=== PATIENT | male | born 1940 | race Caucasian/White ===

== ENCOUNTER 2019-02-11 17:56 | Inpatient (IN) | payer MEDICARE, OTHER, SELFPAY ==
[2019-02-11 17:55] VITALS: BMI 28.0
--- NOTE | 2019-02-11 18:02 | PCM.HP.STD ---
History of Present Illness The patient is a 78 year old M [] Past Medical History Allergies No Known Allergies Allergy (Verified 02/11/19 17:59) Home Medications: Ambulatory Orders Medication Instructions Recorded Levothyroxine Sodium [Synthroid] 75 mcg PO 02/11/19 Losartan/Hydrochlorothiazide 1 each PO 02/11/19 [Losartan-Hctz 50-12.5 mg Tab] Smoking Status: Former smoker - Physical Exam Weight: 91.1 kg Body Mass Index (BMI) 28.0
[2019-02-11 18:12] VITALS: BMI 28.0
--- NOTE | 2019-02-11 18:19 | PCM.HP.STD ---
<Mavis Rosas - Last Filed: 02/11/19 18:43> Problem List (1) Pancreatitis Status: Acute (2) HTN (hypertension) Status: Chronic (3) Hypothyroidism Status: Chronic History of Present Illness Date of Admission: 02/11/19 Chief Complaint: Abdominal pain. The patient is a 78 year old M who presents as direct admit from [facility] due to abdominal pain. He reports that 9 AM he developed sudden onset of severe abdominal pain with associated nausea, no emesis. No recent illness. Reports he has never had pain like this in his life. Pain is mid upper abdomen, no radiation. Denies other associated complaints. He denies history of pancreatitis. Denies taking any new medications. Denies alcohol use. He has a past medical history of hypertension and hypothyroidism. Past Medical History Past Medical History (Chronic Problems): Chronic Problems HTN (hypertension) (Chronic) Hypothyroidism (Chronic) Allergies No Known Allergies Allergy (Verified 02/11/19 17:59) Home Medications: Ambulatory Orders Medication Instructions Recorded Levothyroxine Sodium [Synthroid] 75 mcg PO 02/11/19 Losartan/Hydrochlorothiazide 1 each PO 02/11/19 [Losartan-Hctz 50-12.5 mg Tab] Surgical History: - - Carpal tunnel release, right ankle/foot surgery and BL shoulder arthroscopy. Psychiatric History: No pertinent psych hx Lives: Spouse/ Significant Other Smoking Status: Former smoker Alcohol: Rare - *Family History Maternal History Items: - - from heart attack. Paternal History Items: - - secondary to CHF. Review of Systems Constitutional: Denies: Chills, Fever, Weight Change HEENT: Denies: Head Aches, Sinus Congestion, Sinus Drainage Cardiovascular: Denies: Chest Pain, Palpitations Respiratory: Denies: Cough, Shortness of breath at rest, Sputum production Gastrointestinal: Reports: Abdominal Pain, Nausea. Denies: Constipation, Diarrhea, Vomiting Genitourinary: Denies: Dysuria Musculoskeletal: Denies: Joint Pain, Joint Tenderness Skin: Denies: Rash, Wounds Neurological: Denies: Numbness, Tingling, Focal weakness Psychiatric: Denies: Anxiety, Depression, Homicidal Ideations, Suicidal Ideations Hematologic/ Lymphatic: Denies: Easy Bruising, Easy Bleeding VTE Information - Inpt Only VTE Present on Admission: No VTE Mechan Device Prophylaxis: None VTE Pharm Prophylaxis ordered?: Yes Patient Problems: Active and Suspected Problems Pancreatitis (Acute) - Physical Exam General: Alert, Oriented x3, Cooperative HEENT: Atraumatic, PERRLA, EOMI, Normocephalic Oral: Dry Mucosa Neck: Supple, No JVD, Negative Carotid Bruits Lungs: Clear to auscultation, Normal air movement Cardiovascular: Regular rate, Regular Rhythm, Normal S1, Normal S2, No murmurs Abdomen: Bowel Sounds Present, Soft, Guarding, Tender Extremities: No clubbing, No cyanosis, No edema, Capillary Refill Less than 3 Seconds Skin: No rashes, No breakdown Musculoskeletal: No Tenderness to Palpation of Joints or Extremities Neurological: Cranial nerves II-XII grossly intact, Neuro grossly intact Psych/Mental Status: Normal Affect, Appropriate Weight: 200 lb 13.458 oz Body Mass Index (BMI) 28.0 Assessment/Plan All Active Problems Pancreatitis (Acute) 1. Acute pancreatitis-lipase at outside facility 42,623. CT of abdomen showed moderate peripancreatic fat stranding compatible with acute pancreatitis. Possible small dependent gallstones in the gallbladder. Moderate to severe prostate enlargement. NPO. IV fluids. Trend lipase. PRN pain regimen. 2. Elevated creatinine, unclear baseline- Creat 1.4. IV fluids. Trend BMP. 3. Hypertension-hold losartan/HCTZ regimen. IV hydralazine for systolic blood pressure greater than 160. 4. Hypothyroidism-continue Synthroid regimen. DVT prophylaxis- heparin sc This patient was seen by ELOISA StackC under the supervision of Dr. Rios. <Naina Rios - Last Filed: 02/11/19 21:41> History of Present Illness The patient is a 78 year old M [] Past Medical History Allergies No Known Allergies Allergy (Verified 02/11/19 17:59) - Physical Exam Vital Signs Temp Pulse Resp BP Pulse Ox 98.4 F 63 17 130/66 H 97 02/11/19 20:48 02/11/19 20:48 02/11/19 20:48 02/11/19 20:48 02/11/19 20:48 Oxygen Delivery Method Room Air Weight: 91.1 kg Body Mass Index (BMI) 28.0 Laboratory Tests Past 24 Hrs 02/11/19 19:25 Sodium 139 Potassium 3.7 Chloride 105 Carbon Dioxide 27.0 Anion Gap 7 BUN 22 H Creatinine 1.26 Estim Creat Clear Calc 53.12 Est GFR (MDRD) Af Amer 71 Est GFR (MDRD) Non-Af 59 L BUN/Creatinine Ratio 17.5 Glucose 121 H Calcium 9.0 Total Bilirubin 0.90 AST 159 H ALT 148 H Alkaline Phosphatase 73 Total Protein 6.2 L Albumin 3.3 Globulin 2.9 Albumin/Globulin Ratio 1.1 Assessment/Plan This patient was seen in conjunction with Mavis Rosas NP. I have independently interviewed and examined the patient and reviewed pertinent historical, laboratory, and other data. Please refer to her note for patient's presentation, findings, and recommendations. 78-year-old male with past medical history of hypertension, hypothyroidism who comes in as a transfer from [facility] with complaints of epigastric discomfort. Patient lives close to [facility] but prefers to be brought to the [facility] for treatment. He had reported in the morning with epigastric pain that radiates to his back. Patient had had a normal breakfast, subsequently as some pretzels and snacks and started having pain. His epigastric pain was described as dull, worsened with movement, relieved by nothing, radiates to the back. His vitals were stable, WBC count was 6.43, hemoglobin 13.4, platelet count 1032 WBC was 1.1, direct bilirubin was 0.6, BMP was unremarkable except for BUN of 27, creatinine 1.42, lipase was 40 2623, magnesium was 1.8, troponins were negative His admitting EKG was reportedly normal. Chest x-ray shows no acute infiltrate. CT scan of the abdomen shows moderate pancreatic fat stranding compatible with acute pancreatitis, moderately distended gallbladder with minimal haziness of the pericholecystic fat, possible small dependent gallstones in the gallbladder lumen. Subsequent ultrasound of the gallbladder was negative for any gallstones. On arrival to [facility], patient said his pain was much improved, he denied any nausea or vomiting. Vitals appears stable. Physical Exam: Gen:Comfortable, not pale, not jaundiced, alert oriented x3 CVS:HS I +II, regular, no murmurs RESP: CTA GI:BS present and normal, soft, epigastric and LUQ tenderness, with guarding but no rebound tenderness EXT:No edema ASSESSMENT: 1. Acute pancreatitis, unclear etiology for now, likely gallstones related versus medication side effect 2. Hypertension 3. Hypothyroidism 4. JERZY versus CKD stage III, unknown previous creatinine 5. Hypomagnesemia Plan: Keep n.p.o., IV fluids, pain control with IV morphine as needed Fasting lipid profile in a.m., repeat CMP and CBC D, lipase in a.m. Consider general surgery consult if lipase continues to be elevated for possible MRCP/ERCP Recheck magnesium in a.m. Code Visit Inpatient E&M: 39176 Init Hosp L3
[2019-02-11 18:27] VITALS: BP 143/70; PULSE 63; RESP 16; TEMP 36.9; O2SAT 99
[2019-02-11] MEDS: Morphine 2 MG/ML Syringe IV ×2 (19:33→22:07)
[2019-02-11] MEDS: 0.9% Normal Saline 1,000 ML 125 ML IV (19:36)
[2019-02-11 20:13] LABS: ALB/GLOB Ratio 1.1 RATIO (0.9-2.4); AST(SGOT) 159 U/L (15-37); Alanine Aminotransfer ALT/SGPT 148 U/L (16-61); Albumin, Serum 3.3 g/dL (3.2-5.0); Alkaline Phosphatase 73 U/L (45-117); Anion Gap 7 (5-15); BUN 22 mg/dL (7-18); BUN/Creat Ratio 17.5 RATIO (10-20); Chloride 105 mmol/L (98-107); Creatinine, Serum 1.26 mg/dL (0.70-1.30); EST Glomerular Filtration Rate 59 mL/min (>60); Est Glom Filt Rate - Afr Amer 71 mL/min (>60); Estimated Creatinine Clearance 53.12 ml/min; Globulin 2.9 g/dL (2.2-4.2); Glucose 121 mg/dL (74-106); Potassium 3.7 mmol/L (3.5-5.1); Protein, Total 6.2 g/dL (6.4-8.2); Sodium Level 139 mmol/L (136-145)
[2019-02-11 20:48] VITALS: BP 130/66; PULSE 63; RESP 17; TEMP 36.9; O2SAT 97
[2019-02-11] MEDS: Heparin Injection (Vial) 5,000 UNIT/ML VIAL 5000 UNIT SC (21:37)
[2019-02-12 02:08] VITALS: BP 112/59; PULSE 61; RESP 18; TEMP 36.9; O2SAT 96
[2019-02-12] MEDS: Morphine 2 MG/ML Syringe IV (03:50)
[2019-02-12] MEDS: 0.9% Normal Saline 1,000 ML 125 ML IV (03:51)
[2019-02-12] MEDS: Levothyroxine 75 MCG Tablet PO (05:17)
[2019-02-12] MEDS: Heparin Injection (Vial) 5,000 UNIT/ML VIAL 5000 UNIT SC ×3 (05:18→22:14)
[2019-02-12 06:18] LABS: Absolute Lymphocyte Count 0.84 X10^3/ul (0.83-4.51); Absolute Neutrophil Count 3.8 X10^3/uL (2.0-7.7); Basophil# 0.01 X10^3/uL; Basophil% 0.2 % (0-1); Hematocrit 35.8 % (40-54); Hemoglobin 12.6 g/dl (13.0-16.5); Lymphocyte # 0.84 X10^3/ul (4.0); Lymphocyte % 17.2 % (19-41); Mean Corp Hgb Conc 35.2 g/gl (32-36); Mean Corpuscular Hgb 32.3 pg (27.0-32.0); Mean Corpuscular Volume 91.8 fL (80-94); Mean Platelet Vol. 9.4 fl (6.2-12.0); Monocyte# 0.24 X10^3/uL; Monocyte% 4.9 % (0-10); Neutrophil # 3.77 X10^3/uL (2.7-7.7); Neutrophil % 77.5 % (47-70); Platelet Count 92 K/mm3 (150-450); RBC Distribution Width CV 13.3 % (11.6-14.6); White Blood Count 4.9 K/mm3 (4.4-11.0)
[2019-02-12 06:23] LABS: POSITIVE COUNT NO; POSITIVE DIFFERENTIAL NO; POSITIVE MORPHOLOGY NO
[2019-02-12 06:39] LABS: ALB/GLOB Ratio 1.2 RATIO (0.9-2.4); AST(SGOT) 81 U/L (15-37); Alanine Aminotransfer ALT/SGPT 110 U/L (16-61); Albumin, Serum 3.1 g/dL (3.2-5.0); Alkaline Phosphatase 65 U/L (45-117); Anion Gap 3 (5-15); BUN 22 mg/dL (7-18); BUN/Creat Ratio 16.3 RATIO (10-20); Calcium,Total 8.7 mg/dL (8.5-10.1); Chloride 107 mmol/L (98-107); Creatinine, Serum 1.35 mg/dL (0.70-1.30); EST Glomerular Filtration Rate 55 mL/min (>60); Est Glom Filt Rate - Afr Amer 66 mL/min (>60); Estimated Creatinine Clearance 49.58 ml/min; Globulin 2.5 g/dL (2.2-4.2); Glucose 110 mg/dL (74-106); Lipase 5078 U/L (73-393); Magnesium 1.9 mg/dL (1.6-2.6); Potassium 3.9 mmol/L (3.5-5.1); Protein, Total 5.6 g/dL (6.4-8.2); Sodium Level 141 mmol/L (136-145)
[2019-02-12 08:12] VITALS: BP 122/64; PULSE 64; RESP 18; TEMP 36.6; O2SAT 100
[2019-02-12 09:15] LABS: Hemoglobin A1c 5.7 % (4.2-6.3)
--- NOTE | 2019-02-12 11:08 | PCM.PROGNOTE ---
Patient Problems: Active and Suspected Problems Pancreatitis (Acute) Subjective: Patient seen and examined. Abdominal pain significantly improved. Denies nausea. Complains of continued abdominal tenderness. - Physical Exam General: Alert, Oriented x3, Cooperative HEENT: Atraumatic, PERRLA, EOMI, Normocephalic Neck: Supple, No JVD, Negative Carotid Bruits Lungs: Clear to auscultation, Normal air movement Cardiovascular: Regular rate, Regular Rhythm, Normal S1, Normal S2, No murmurs Abdomen: Bowel Sounds Present, Soft, Non-Distended, Tender - mid epigastric, improved from prior Extremities: No clubbing, No cyanosis, No edema, Capillary Refill Less than 3 Seconds Skin: No rashes, No breakdown Musculoskeletal: No Tenderness to Palpation of Joints or Extremities Neurological: Cranial nerves II-XII grossly intact, Neuro grossly intact Psych/Mental Status: Normal Affect, Appropriate Vital Signs Temp Pulse Resp BP Pulse Ox 97.9 F 64 18 122/64 H 100 02/12/19 08:12 02/12/19 08:12 02/12/19 08:12 02/12/19 08:12 02/12/19 08:12 Oxygen Delivery Method Room Air Weight: 200 lb 13.458 oz Body Mass Index (BMI) 28.0 Intake and Output for Last 24 Hours 02/10/19 02/11/19 02/12/19 23:59 23:59 23:59 Intake Total 1264 / 1264 Output Total 1000 / 1000 Balance 264 / 264 Laboratory Tests Past 24 Hrs 02/11/19 02/12/19 02/12/19 19:25 05:45 05:45 WBC 4.9 RBC 3.90 L Hgb 12.6 L Hct 35.8 L MCV 91.8 MCH 32.3 H MCHC 35.2 RDW 13.3 RDW Differential 44.0 H Plt Count 92 L MPV 9.4 Immature Gran % (Auto) 0.200 Neut % (Auto) 77.5 H Lymph % (Auto) 17.2 L [place] % (Auto) 4.9 Eos % (Auto) 0.0 Baso % (Auto) 0.2 Absolute Neuts (auto) 3.8 Absolute Lymphs (auto) 0.84 Total Counted Not Reportable Sodium 139 141 Potassium 3.7 3.9 Chloride 105 107 Carbon Dioxide 27.0 31.0 Anion Gap 7 3 L BUN 22 H 22 H Creatinine 1.26 1.35 H Estim Creat Clear Calc 53.12 49.58 Est GFR (MDRD) Af Amer 71 66 Est GFR (MDRD) Non-Af 59 L 55 L BUN/Creatinine Ratio 17.5 16.3 Glucose 121 H 110 H Hemoglobin A1c Calcium 9.0 8.7 Magnesium 1.9 Total Bilirubin 0.90 0.90 AST 159 H 81 H ALT 148 H 110 H Alkaline Phosphatase 73 65 Total Protein 6.2 L 5.6 L Albumin 3.3 3.1 L Globulin 2.9 2.5 Albumin/Globulin Ratio 1.1 1.2 Lipase 5078 H 02/12/19 05:45 WBC RBC Hgb Hct MCV MCH MCHC RDW RDW Differential Plt Count MPV Immature Gran % (Auto) Neut % (Auto) Lymph % (Auto) [place] % (Auto) Eos % (Auto) Baso % (Auto) Absolute Neuts (auto) Absolute Lymphs (auto) Total Counted Sodium Potassium Chloride Carbon Dioxide Anion Gap BUN Creatinine Estim Creat Clear Calc Est GFR (MDRD) Af Amer Est GFR (MDRD) Non-Af BUN/Creatinine Ratio Glucose Hemoglobin A1c 5.7 Calcium Magnesium Total Bilirubin AST ALT Alkaline Phosphatase Total Protein Albumin Globulin Albumin/Globulin Ratio Lipase Medical Necessity - Tobacco Use Smoking Status: Former smoker Tobacco Use: Cigarettes Assessment/Plan All Active Problems Pancreatitis (Acute) 1. Acute pancreatitis, unclear etiology-possible gallstone pancreatitis. CT of abdomen showed moderate peripancreatic fat stranding compatible with acute pancreatitis. Possible small dependent gallstones in the gallbladder. Moderate to severe prostate enlargement. NPO. IV fluids. Trend lipase. Lipase at outside facility 42,623. Down to 5,078. PRN pain regimen. Obtain MRCP today. Possible surgery consult pending MRCP results. 2. Suspected chronic kidney disease stage III-stable, no acute kidney injury. Trend BMP. 3. Hypertension-hold losartan/HCTZ regimen. IV hydralazine for systolic blood pressure greater than 160. 4. Hypothyroidism-continue Synthroid regimen. DVT prophylaxis- heparin sc This patient was seen by Mavis Rosas NP-C under the supervision of Dr. Rios.
[2019-02-12] MEDS: 0.9% Normal Saline 1,000 ML 175 ML IV ×2 (11:23→19:44)
--- NOTE | 2019-02-12 11:48 | CASEMGMT ---
RN CM ASPARAGUS BUNCHER CM to room to meet with patient for initial transition planning/care coordination assessment. RN NOHEMI introduced self and role at [facility]. Pt voices understanding and consents to assessment at this time. Pt resting in bed in no distress at this time. @ bedside. Pt is A/O at this time and answers all questions appropriately. Care providers, pharmacy, and demographics verified/updated at this time. PCP: [facility]: denies Preferred Pharmacy: [facility] [place] Insurance: [facility] Prescription Benefit: [employer]. Living Will/HPOA: Has both LW and HCPOA, who is his . LNOK: Living Arrangements: Lives in 2-story home w/his . FFSU. Independent. Transportation: Pt states drives self and states no transportation concerns at this time. DME: Denies using any DME and denies needs. SNF/HHC: No history of either. Denies needs and no needs identified. Pt wishes to return home and states has no concerns with going home at time of discharge CM to follow for discharge planning/needs. Pt voices no further concerns/needs at this time. Advised pt to ask for CM if any further questions/concerns/needs arise. Voices understanding. PLAN: Home w/spousal support and discharge plans in place. Julianne GUNTER RN, CM
--- NOTE | 2019-02-12 12:04 | US_ITS ---
STUDY: ABDOMINAL ULTRASOUND - RIGHT UPPER QUADRANT REASON FOR VISIT: Male, 78 years old. Pancreatitis. TECHNIQUE: Ultrasound evaluation of the right upper quadrant was performed with real-time and static quintana-scale imaging. TECHNICAL QUALITY: Limited by bowel gas. COMPARISON: None. FINDINGS: Liver: The liver measures 16.9 cm. There is increased echogenicity consistent with fatty infiltration. The bile ducts are within normal limits. There is hepatic color flow. The direction of portal flow is hepatopetal. There is no demonstrated mass lesion. Gallbladder: Normal distended gallbladder. The gallbladder wall measures 8 mm. There is a negative sonographic Nelson's sign. There is no pericholecystic fluid. There is a subcentimeter gallbladder polyp. Common Bile Duct (C.B.D.): The common bile duct measures 4 mm. Pancreas: There is nonvisualization of the pancreas. Right Kidney: Normal size of the right kidney. The right kidney measures 12 cm. Normal renal cortex. There is no demonstrated renal mass or cyst. There is no right hydronephrosis. US/Gallbladder IMPRESSION: Pancreas not visualized due to bowel gas. Thickened gallbladder wall. No pericholecystic fluid or gallstones. Negative sonographic Nelson's sign. Subcentimeter gallbladder polyp. Fatty liver. Electronically Signed: Jose Bui, at 15:47 EDT Tel , Service support ,
[2019-02-12 15:11] VITALS: BP 152/79; PULSE 67; RESP 18; TEMP 36.8; O2SAT 98
--- NOTE | 2019-02-12 15:26 | CHAPLAIN ---
Type of Pastoral Visit _x__ Initial Visit ___ Follow-up Visit ___ On-call Visit ___ General Patient Visit ___ Spiritual Assessment ___ Family Conference ___ Bereavement ___ Rapid Response ___ Code Blue ___ Other (describe below) Pastoral Care Referral From _x__ Patient ___ Family ___ Nurse ___ Physician ___ Willow Machine Operator ___ Operations Clerk ___ Other (describe below) Sacrament/Intervention _x__ Active listening ___ Anointing ___ Anglican ___ Bereavement ___ Communion _x__ Edilma exploration ___ _x__ Life review _x__ Prayer ___ Reconciliation ___ Sacrament of Sick _x__ Supportive presence ___ Wedding ___ Other (describe below) Pastoral Comments patient had a couple of spiritual questions that he was wanting to ask; pt has good family support and does have a religious connection;
[2019-02-12] MEDS: Acetaminophen 325 MG Tablet 650 MG PO (16:00)
[2019-02-12 22:08] VITALS: BP 138/70; PULSE 66; RESP 18; TEMP 36.7; O2SAT 97
[2019-02-13] VITALS (7 sets, daily range): BP systolic 116–156; BP diastolic 55–85; PULSE 62–75; RESP 14–18; TEMP 36.3–37.1; O2SAT 93–98; BMI 28.0
--- NOTE | 2019-02-13 | GALL_PTH ---
PATIENT: FARZAD LAUREN LOC: MS3 U#:[id number] AGE/SX: 78/M [facility]: Dr. Rubén Leigh DO : 1940 BED: 1 DIS: 02/13/2019 SPEC #: [id number] RECD: 02/13/19 14:29 STATUS: DEWAYNE REQ #: [id number] MACARIO: 02/13/19 00:[address]: Wilian Garcia DEPT: SURGICAL PATHOLOGY RECD BY: Todd De Luna ENTERED: 02/13/19 14:29 SP TYPE: HAYLEY CHADWICK DR: MD Dr. Rubén Hillman DO Dr. Victor Velasquez, MD Tissues: Gallbladder, NOS Procedures: Surgery Specimen Level III Comments: @ Ordering doctor for SUIII edited from to @ by RGOOD at 02/13/19 155 @ Submitting doctor edited from to @ by RGOOD at 02/13/19 1552 HEADER OPERATION: Laparoscopic cholecystectomy with IOC PRE-OP DIAGNOSIS: Acute pancreatitis TISSUE SUBMITTED: Gallbladder MICROSCOPIC DIAGNOSIS Gallbladder, cholecystectomy: Chronic cholecystitis and cholelithiasis. SJ:chantal 02/14/19 MICROSCOPIC DESCRIPTION Slides are reviewed. GROSS DESCRIPTION Received is one container labeled with the patient's name and designated gallbladder. The specimen consists of a gallbladder measuring 8.5 x 2.6 x 2.5 cm. The external surface is smooth and glistening. Focally, it is granular, hemorrhagic and contains cautery artifact. The lumen of the gallbladder contains yellow-green mucoid bile and multiple black calculi ranging in size from <0.1 to 0.1 cm. The mucosa is bile-stained and without any mass lesions. The gallbladder wall averages 0.3 cm in thickness and is free of mass lesions. Heavy Forging Machine Operator sections of the gallbladder and the cystic duct are submitted in one cassette. / AM:chantal 02/13/19 TC:3 CPT: 03155
[2019-02-13] MEDS: 0.9% Normal Saline 1,000 ML 175 ML IV (01:07)
--- NOTE | 2019-02-13 05:36 | EKG12_ITS ---
Test Reason : Blood Pressure : / mmHG Vent. Rate : 059 BPM Atrial Rate : 059 BPM P-R Int : 148 ms QRS Dur : 100 ms QT Int : 400 ms P-R-T Axes : -08 034 037 degrees QTc Int : 396 ms Sinus bradycardia Low voltage QRS (Limb leads) Borderline ECG Confirmed by JOSELITO JOINER, GEORGI ([id number]), editorial director MAHESH AGUILAR ([id number]) on 02/17/2019 10:53:30 AM Referred By: Naina Rios Confirmed By:GEORGI YEE MD
[2019-02-13 06:10] LABS: ALB/GLOB Ratio 1.1 RATIO (0.9-2.4); AST(SGOT) 43 U/L (15-37); Alanine Aminotransfer ALT/SGPT 71 U/L (16-61); Alkaline Phosphatase 58 U/L (45-117); Anion Gap 5 (5-15); BUN 18 mg/dL (7-18); BUN/Creat Ratio 15.3 RATIO (10-20); Calcium,Total 8.2 mg/dL (8.5-10.1); Chloride 108 mmol/L (98-107); Creatinine, Serum 1.18 mg/dL (0.70-1.30); EST Glomerular Filtration Rate 64 mL/min (>60); Est Glom Filt Rate - Afr Amer 77 mL/min (>60); Estimated Creatinine Clearance 56.72 ml/min; Globulin 2.7 g/dL (2.2-4.2); Glucose 87 mg/dL (74-106); Lipase 1162 U/L (73-393); Potassium 3.7 mmol/L (3.5-5.1); Protein, Total 5.7 g/dL (6.4-8.2); Sodium Level 143 mmol/L (136-145)
[2019-02-13 06:52] LABS: Thyroid Stim Hormone (TSH) 1.75 uIU/mL (0.358-3.74)
[2019-02-13 06:55] LABS: Absolute Lymphocyte Count 0.64 X10^3/ul (0.83-4.51); Basophil# 0.01 X10^3/uL; Basophil% 0.2 % (0-1); Hematocrit 35.5 % (40-54); Hemoglobin 12.4 g/dl (13.0-16.5); Lymphocyte # 0.64 X10^3/ul (4.0); Lymphocyte % 12.8 % (19-41); Mean Corp Hgb Conc 34.9 g/gl (32-36); Mean Corpuscular Hgb 32.3 pg (27.0-32.0); Mean Corpuscular Volume 92.4 fL (80-94); Mean Platelet Vol. 9.2 fl (6.2-12.0); Monocyte# 0.32 X10^3/uL; Monocyte% 6.4 % (0-10); Neutrophil # 4.03 X10^3/uL (2.7-7.7); Neutrophil % 80.6 % (47-70); Platelet Count 76 K/mm3 (150-450); RBC Distribution Width CV 13.4 % (11.6-14.6); RBC Distribution Width SD 44.8 fl (35.1-43.9); Red Blood Count 3.84 M/mm3 (4.6-6.2)
[2019-02-13 06:55] LABS: Partial Thromboplast Time 31.6 Seconds (24.1-36.2)
[2019-02-13 06:56] LABS: POSITIVE COUNT NO; POSITIVE DIFFERENTIAL NO; POSITIVE MORPHOLOGY NO
[2019-02-13] MEDS: Bupiv/Epi 0.25% 30 ML Vial (09:09)
--- NOTE | 2019-02-13 09:15 | PCM.CONS.GEN ---
Problem List (1) Pancreatitis Status: Acute Qualifiers: Chronicity: acute Pancreatitis type: biliary Acute pancreatitis complication: no infection or necrosis Qualified Code(s): K85.10 - Biliary acute pancreatitis without necrosis or infection Reason for Consult Date of Consultation: 02/12/19 Reason for Consultation: Pancreatitis History of Present Illness: The patient is a 78 year old M transferred from [facility] for pancreatitis. Patient had a CT scan which showed pancreatitis with possible gallstones. He was transferred here in case ERCP was needed. Patient reports that he had some nausea when this first happened but he was having epigastric pain when he came into the emergency room. The patient was complained of epigastric pain but the following day his epigastric pain improved and he had no nausea or vomiting. Past Medical History Past Medical History (Chronic Problems): Chronic Problems HTN (hypertension) (Chronic) Hypothyroidism (Chronic) Allergies No Known Allergies Allergy (Verified 02/11/19 17:59) Home Medications: Ambulatory Orders Medication Instructions Recorded Levothyroxine Sodium [Synthroid] 75 mcg PO 02/11/19 Losartan/Hydrochlorothiazide 1 each PO 02/11/19 [Losartan-Hctz 50-12.5 mg Tab] Surgical History: - - Carpal tunnel release, right ankle/foot surgery and BL shoulder arthroscopy. Psychiatric History: No pertinent psych hx Lives: Spouse/ Significant Other Smoking Status: Former smoker Tobacco Use: Cigarettes Alcohol: Rare - *Family History Maternal History Items: - - from heart attack. Paternal History Items: - - secondary to CHF. Review of Systems Constitutional: Denies: Anorexia, Fever HEENT: Denies: Difficulty Swallowing Cardiovascular: Denies: Chest Pain Respiratory: Denies: Cough, Shortness of Breath Gastrointestinal: Reports: Abdominal Pain, Nausea. Denies: Diarrhea, Hematemesis, Hematochezia, Vomiting Genitourinary: Denies: Dysuria Musculoskeletal: Denies: Joint Tenderness Skin: Denies: Dryness, Jaundice Neurological: Denies: Balance problems Psychiatric: Denies: Anxiety, Depression Patient Problems: Active and Suspected Problems Pancreatitis (Acute) - Physical Exam General: Alert, Oriented x3, Cooperative, No apparent distress HEENT: Atraumatic, PERRLA Neck: No Nodes Lungs: Normal air movement Cardiovascular: Regular rate, Regular Rhythm Abdomen: Soft, Non-Distended, Tender - Mild epigastric tenderness Vital Signs Temp Pulse Resp BP Pulse Ox 98.2 F 62 18 126/64 H 98 02/13/19 04:06 02/13/19 04:06 02/13/19 04:06 02/13/19 04:06 02/13/19 04:06 Oxygen Delivery Method Room Air Weight: 202 lb Body Mass Index (BMI) 28.0 Intake and Output for Last 24 Hours 02/11/19 02/12/19 02/13/19 23:59 23:59 23:59 Intake Total 3860 / 3860 1005 / 1005 Output Total 1600 / 1600 600 / 600 Balance 2260 / 2260 405 / 405 Laboratory Tests Past 24 Hrs 02/12/19 02/13/19 02/13/19 05:45 05:18 05:18 WBC 5.0 RBC 3.84 L Hgb 12.4 L Hct 35.5 L MCV 92.4 MCH 32.3 H MCHC 34.9 RDW 13.4 RDW Differential 44.8 H Plt Count 76 L MPV 9.2 Immature Gran % (Auto) 0.000 Neut % (Auto) 80.6 H Lymph % (Auto) 12.8 L [place] % (Auto) 6.4 Eos % (Auto) 0.0 Baso % (Auto) 0.2 Absolute Neuts (auto) 4.0 Absolute Lymphs (auto) 0.64 L Total Counted Not Reportable APTT Sodium 143 Potassium 3.7 Chloride 108 H Carbon Dioxide 30.0 Anion Gap 5 BUN 18 Creatinine 1.18 Estim Creat Clear Calc 56.72 Est GFR (MDRD) Af Amer 77 Est GFR (MDRD) Non-Af 64 BUN/Creatinine Ratio 15.3 Glucose 87 Hemoglobin A1c 5.7 Calcium 8.2 L Total Bilirubin 1.10 H AST 43 H ALT 71 H Alkaline Phosphatase 58 Total Protein 5.7 L Albumin 3.0 L Globulin 2.7 Albumin/Globulin Ratio 1.1 Lipase 1162 H TSH 02/13/19 02/13/19 05:18 06:36 WBC RBC Hgb Hct MCV MCH MCHC RDW RDW Differential Plt Count MPV Immature Gran % (Auto) Neut % (Auto) Lymph % (Auto) [place] % (Auto) Eos % (Auto) Baso % (Auto) Absolute Neuts (auto) Absolute Lymphs (auto) Total Counted APTT 31.6 Sodium Potassium Chloride Carbon Dioxide Anion Gap BUN Creatinine Estim Creat Clear Calc Est GFR (MDRD) Af Amer Est GFR (MDRD) Non-Af BUN/Creatinine Ratio Glucose Hemoglobin A1c Calcium Total Bilirubin AST ALT Alkaline Phosphatase Total Protein Albumin Globulin Albumin/Globulin Ratio Lipase TSH 1.75 Assessment/Plan All Active Problems Pancreatitis (Acute) 78-year-old male with gallstone pancreatitis 1. Patient was admitted with slightly elevated LFTs which did not worsen overnight. Patient had ultrasound and abdominal CT at the outside hospital. CT showed some hyperdense layering in the gallbladder but ultrasound did not show gallstones. I reviewed the CT and I do see the small layering possible tiny gallstones in the gallbladder. As this patient is not a drinker I do believe that he has gallstone pancreatitis. Especially given the slightly elevated LFTs with no ductal dilation. I do recommend laparoscopic cholecystectomy with cholangiogram. 2. I discussed the procedure in detail with the patient. I discussed the risks, benefits, and alternatives of the procedure. I discussed the risks including but not limited to bleeding, infection, injury to surrounding organs such as the liver, bile duct, bowels. I did discuss the possibility of having to convert to an open procedure as well as the possibility that if any injuries occurred this may necessitate further surgery at a tertiary care center. Wilian Garcia MD Pager: [facility] [address] [place] [address], [address] [place] [address] Office:
--- NOTE | 2019-02-13 09:18 | CON.PCM_ITS ---
Problem List (1) Pancreatitis Status: Acute Qualifiers: Chronicity: acute Pancreatitis type: biliary Acute pancreatitis complication: no infection or necrosis Qualified Code(s): K85.10 - Biliary acute pancreatitis without necrosis or infection Reason for Consult Date of Consultation: 02/12/19 Reason for Consultation: Pancreatitis History of Present Illness: The patient is a 78 year old M transferred from [facility] for pancreatitis. Patient had a CT scan which showed pancreatitis with possible gallstones. He was transferred here in case ERCP was needed. Patient reports that he had some nausea when this first happened but he was having epigastric pain when he came into the emergency room. The patient was complained of epigastric pain but the following day his epigastric pain improved and he had no nausea or vomiting. Past Medical History Past Medical History (Chronic Problems): Chronic Problems HTN (hypertension) (Chronic) Hypothyroidism (Chronic) Allergies No Known Allergies Allergy (Verified 02/11/19 17:59) Home Medications: Ambulatory Orders Medication Instructions Recorded Levothyroxine Sodium [Synthroid] 75 mcg PO 02/11/19 Losartan/Hydrochlorothiazide 1 each PO 02/11/19 [Losartan-Hctz 50-12.5 mg Tab] Surgical History: - - Carpal tunnel release, right ankle/foot surgery and BL shoulder arthroscopy. Psychiatric History: No pertinent psych hx Lives: Spouse/ Significant Other Smoking Status: Former smoker Tobacco Use: Cigarettes Alcohol: Rare - *Family History Maternal History Items: - - from heart attack. Paternal History Items: - - secondary to CHF. Review of Systems Constitutional: Denies: Anorexia, Fever HEENT: Denies: Difficulty Swallowing Cardiovascular: Denies: Chest Pain Respiratory: Denies: Cough, Shortness of Breath Gastrointestinal: Reports: Abdominal Pain, Nausea. Denies: Diarrhea, Hematemesis, Hematochezia, Vomiting Genitourinary: Denies: Dysuria Musculoskeletal: Denies: Joint Tenderness Skin: Denies: Dryness, Jaundice Neurological: Denies: Balance problems Psychiatric: Denies: Anxiety, Depression Patient Problems: Active and Suspected Problems Pancreatitis (Acute) - Physical Exam General: Alert, Oriented x3, Cooperative, No apparent distress HEENT: Atraumatic, PERRLA Neck: No Nodes Lungs: Normal air movement Cardiovascular: Regular rate, Regular Rhythm Abdomen: Soft, Non-Distended, Tender - Mild epigastric tenderness Vital Signs Temp Pulse Resp BP Pulse Ox 98.2 F 62 18 126/64 H 98 02/13/19 04:06 02/13/19 04:06 02/13/19 04:06 02/13/19 04:06 02/13/19 04:06 Oxygen Delivery Method Room Air Weight: 202 lb Body Mass Index (BMI) 28.0 Intake and Output for Last 24 Hours 02/11/19 02/12/19 02/13/19 23:59 23:59 23:59 Intake Total 3860 / 3860 1005 / 1005 Output Total 1600 / 1600 600 / 600 Balance 2260 / 2260 405 / 405 Laboratory Tests Past 24 Hrs 02/12/19 02/13/19 02/13/19 05:45 05:18 05:18 WBC 5.0 RBC 3.84 L Hgb 12.4 L Hct 35.5 L MCV 92.4 MCH 32.3 H MCHC 34.9 RDW 13.4 RDW Differential 44.8 H Plt Count 76 L MPV 9.2 Immature Gran % (Auto) 0.000 Neut % (Auto) 80.6 H Lymph % (Auto) 12.8 L Sutton % (Auto) 6.4 Eos % (Auto) 0.0 Baso % (Auto) 0.2 Absolute Neuts (auto) 4.0 Absolute Lymphs (auto) 0.64 L Total Counted Not Reportable APTT Sodium 143 Potassium 3.7 Chloride 108 H Carbon Dioxide 30.0 Anion Gap 5 BUN 18 Creatinine 1.18 Estim Creat Clear Calc 56.72 Est GFR (MDRD) Af Amer 77 Est GFR (MDRD) Non-Af 64 BUN/Creatinine Ratio 15.3 Glucose 87 Hemoglobin A1c 5.7 Calcium 8.2 L Total Bilirubin 1.10 H AST 43 H ALT 71 H Alkaline Phosphatase 58 Total Protein 5.7 L Albumin 3.0 L Globulin 2.7 Albumin/Globulin Ratio 1.1 Lipase 1162 H TSH 02/13/19 02/13/19 05:18 06:36 WBC RBC Hgb Hct MCV MCH MCHC RDW RDW Differential Plt Count MPV Immature Gran % (Auto) Neut % (Auto) Lymph % (Auto) Sutton % (Auto) Eos % (Auto) Baso % (Auto) Absolute Neuts (auto) Absolute Lymphs (auto) Total Counted APTT 31.6 Sodium Potassium Chloride Carbon Dioxide Anion Gap BUN Creatinine Estim Creat Clear Calc Est GFR (MDRD) Af Amer Est GFR (MDRD) Non-Af BUN/Creatinine Ratio Glucose Hemoglobin A1c Calcium Total Bilirubin AST ALT Alkaline Phosphatase Total Protein Albumin Globulin Albumin/Globulin Ratio Lipase TSH 1.75 Assessment/Plan All Active Problems Pancreatitis (Acute) 78-year-old male with gallstone pancreatitis 1. Patient was admitted with slightly elevated LFTs which did not worsen ove rnight. Patient had ultrasound and abdominal CT at the outside hospital. CT showed some hyperdense layering in the gallbladder but ultrasound did not show gallstones. I reviewed the CT and I do see the small layering possible tiny gallstones in the gallbladder. As this patient is not a drinker I do believe that he has gallstone pancreatitis. Especially given the slightly elevated LFTs with no ductal dilation. I do recommend laparoscopic cholecystectomy with cholangiogram. 2. I discussed the procedure in detail with the patient. I discussed the risks, benefits, and alternatives of the procedure. I discussed the risks including but not limited to bleeding, infection, injury to surrounding organs such as the liver, bile duct, bowels. I did discuss the possibility of having to convert to an open procedure as well as the possibility that if any injuries occurred this may necessitate further surgery at a tertiary care center. Wilian Garcia MD Pager: [facility] [address] [place] [address], [address] [place] [address] Office:
--- NOTE | 2019-02-13 09:20 | OP.PCM_ITS ---
Problem List (1) Pancreatitis Status: Acute Qualifiers: Chronicity: acute Pancreatitis type: biliary Acute pancreatitis complication: no infection or necrosis Qualified Code(s): K85.10 - Biliary acute pancreatitis without necrosis or infection Report of Operation Date of Procedure: 02/13/19 Pre-Operative Diagnosis: Gallstone pancreatitis Post-Operative Diagnosis: Same Surgery/Procedure Performed:: Laparoscopic cholecystectomy with cholangiogram Specimen's removed: Gallbladder and contents Description of Procedure: After obtaining informed consent patient was brought back to the operating room. General anesthesia was induced. The abdomen was prepped and draped in usual sterile fashion. A small midline incision was made superior to the umbilicus and deepened to the level of fascia. The fascia was elevated and incised. Next the peritoneum was elevated and incised in the same fashion. Finger sweep was performed and the Garcia trocar was placed into the abdomen. The balloon was inflated. The abdomen was inflated to 15 mmHg. Next a camera was introduced into the abdomen and the abdomen was inspected. Next under direct visualization three 5-mm ports were placed one subxiphoid and 2 subcostal. Next the gallbladder was elevated and retracted toward the right shoulder. The peritoneum was stripped from the gallbladder. The infundibulum was located and retracted laterally. Next the triangle of Calot was dissected and the cystic duct and cystic artery were identified. Cholangiograms were performed. The Perkins clamp was used to clamp across the infundibulum and the catheter needle was inserted into the gallbladder. I was unable to get good flushing through the Perkins clamp. The Perkins clamp was removed and a Ranfac catheter was placed in a small poke incision in the right upper quadrant. A clip was placed in the proximal cystic duct and a small jaysno was made in the cystic duct and the Ranfac catheter was placed into the cystic duct. Under fluoroscopy contrast was instilled into the gallbladder and the common duct, cystic duct as well as proximal hepatic ducts were identified. There was good filling of the duodenum. There were no filling defects noted in the common bile duct. The clip was removed as well as the Ranfac catheter and the infundibulum was grasped once more. Three hemolock clips were placed across the cystic duct. The cystic duct was then divided leaving 2 clips on the stump. The cystic artery was clipped and divided in the same fashion. The hook cautery was then used to take the gallbladder off of the gallbladder bed. Hemostasis was obtained. Gallbladder fossa was irrigated and no active bleeding or bile leakage was noted. Next the camera switched to a 5 mm camera and introduced in the subxiphoid port. An Endopouch bag was placed through the umbilical port and the gallbladder was placed into it. The gallbladder was then removed through the umbilical incision. The camera was then reinserted through the umbilical port. The gallbladder fossa was inspected once more and noted to be hemostatic with no leaking bile. The abdomen was suctioned dry. The 5 mm ports were removed under direct visualization. The umbilical port was then removed and the air was removed from the abdomen. Next using an 0 Vicryl suture the umbilical fascia was closed in a [id number] fashion. The umbilical port site was irrigated local anesthetic was administered to all the incisions. All the incisions were closed with interrupted subcuticular 4-0 Monocryl sutures followed by Steri- Strips and dressings. The patient was awoken and taken to PACU in stable condition. - Admit VTE Documentation VTE Mechan Device Prophylaxis: SCD's
[2019-02-13] MEDS: Acetaminophen/Codeine #3 Tablet 2 TABLET PO (10:25)
[2019-02-13] MEDS: 0.9% Normal Saline 1,000 ML 75 ML IV (10:26)
--- NOTE | 2019-02-13 13:30 | RAD_ITS ---
CLINICAL HISTORY: Male, 78 years old. Acute pancreatitis. Laparoscopic cholecystectomy. PROCEDURE: CHOLANGIOGRAM - intraoperative FLUOROSCOPY TIME (if supplied): (0:31) minutes/seconds. TECHNIQUE: (All elements of maximal sterile barrier technique followed, including US elements as applicable) An intraoperative cholangiogram was performed by the surgeon. Imaging was submitted. The visualized intrahepatic ducts are unremarkable. The common bile duct is not dilated. There is no evidence of intraluminal filling defects. Free flow of contrast into the duodenum is seen. RAD/Cholangiogram/ O R,Initial IMPRESSION: Unremarkable intraoperative cholangiogram. Electronically Signed: Lisandro Saenz, at 10:25 EDT , Service support ,
--- NOTE | 2019-02-13 14:18 | PCM.DC ---
- Discharge Diagnoses Current Active Problems: Current Active and Chronic Problems Pancreatitis (Acute) HTN (hypertension) (Chronic) Hypothyroidism (Chronic) You will use the following diet at home:: No restrictions Your food should be the consistency of: Regular Your liquids should be the consistency of: Regular/Thin Discharge Activity: Return to Normal Activity Weight Bearing Status: Full weight bearing Allergies/Adverse Reactions: Allergies No Known Allergies Allergy (Verified 02/11/19 17:59) Medications to take at Discharge Levothyroxine Sodium [Synthroid] 75 mcg PO 02/11/19 Losartan/Hydrochlorothiazide [Losartan-Hctz 50-12.5 mg Tab] 1 each PO 02/11/19 Primary Care Physician: Johnny Rowell MD [Primary Care Provider] - Please follow up with your Primary Care Physician in: in 2 weeks Test Results: Test results from this visit will be discussed in further detail at your follow-up appointment, if applicable. Please Follow Up With: Wilian Garcia MD When: in two weeks
--- NOTE | 2019-02-13 14:21 | DCINST_ITS ---
- Discharge Diagnoses Current Active Problems: Current Active and Chronic Problems Pancreatitis (Acute) HTN (hypertension) (Chronic) Hypothyroidism (Chronic) You will use the following diet at home:: No restrictions Your food should be the consistency of: Regular Your liquids should be the consistency of: Regular/Thin Discharge Activity: Return to Normal Activity Weight Bearing Status: Full weight bearing Allergies/Adverse Reactions: Allergies No Known Allergies Allergy (Verified 02/11/19 17:59) Medications to take at Discharge Levothyroxine Sodium [Synthroid] 75 mcg PO 02/11/19 Losartan/Hydrochlorothiazide [Losartan-Hctz 50-12.5 mg Tab] 1 each PO 02/11/19 Primary Care Physician: Johnny Rowell MD [Primary Care Provider] - Please follow up with your Primary Care Physician in: in 2 weeks Test Results: Test results from this visit will be discussed in further detail at your follow- up appointment, if applicable. Please Follow Up With: Wilian Garcia MD When: in two weeks
--- NOTE | 2019-02-17 16:07 | PCM.DC.SUM ---
Discharge Date and Diagnosis Date of Admission: 02/11/19 Date of Discharge: 02/13/19 - Primary Discharge Diagnosis #1 acute gallstone pancreatitis #2 chronic cholecystitis #3 cholelithiasis #4 hypertension #5 hypothyroidism - Secondary Discharge Diagnosis Chronic Problems HTN (hypertension) (Chronic) Hypothyroidism (Chronic) Hospital Course and Treatment Operations: cholecystecomy Procedures: None Summary of Care Provided: The patient is a 78 year old M who was seen in the emergency room at [facility] with chief complaint of generalized abdominal pain, work-up in the emergency room showed the patient's lipase to be extremely elevated consistent with acute pancreatitis. Patient was admitted to [place] [address], received IV fluids and IV pain medications, and was seen in consultation by general surgery. General surgery recommended a laparoscopic cholecystectomy which was performed, patient had no complications following surgery. On 02/13/2019, patient was seen and examined: On examination he appeared in good health and spirits. Vital signs as documented. Skin warm and dry and without overt rashes. Neck without JVD. Lungs clear. Heart exam notable for regular rhythm, normal sounds and absence of murmurs, rubs or gallops. Abdomen-soft and nondistended. Extremities nonedematous. Neuro: Cranial nerves II through XII are grossly intact, no focal motor deficits were noted, sensation to light touch and pinprick intact. Psych: Patient is alert and oriented x3, he does not appear anxious or depressed On 02/13/2019, patient was seen and examined and felt to be in stable condition for discharge home - Physical Exam Vital Signs Temp Pulse Resp BP Pulse Ox 98.7 F 68 18 148/80 H 95 02/13/19 14:23 02/13/19 14:23 02/13/19 14:23 02/13/19 14:23 02/13/19 14:23 Oxygen Flow Rate (L/min) 3 Oxygen Delivery Method Room Air Weight: 91.626 kg Body Mass Index (BMI) 28.0 Discharge Activity: Return to Normal Activity Weight Bearing Status: Full weight bearing Home Medications: Medications to take at Discharge Levothyroxine Sodium [Synthroid] 75 mcg PO 02/11/19 Losartan/Hydrochlorothiazide [Losartan-Hctz 50-12.5 mg Tab] 1 each PO 02/11/19 Primary Care Physician: Johnny Rowell MD [Primary Care Provider] - Please follow up with your Primary Care Physician in: in 2 weeks Please Follow Up With: Wilian Garcia MD When: in two weeks Disposition: Home Minutes spent on discharge:: 32 Patient Condition:: Stable Medical Necessity - Tobacco Use Smoking Status: Former smoker Tobacco Use: Cigarettes Meaningful Use Info Meaningful Use Diagnoses (Choose all that apply): None applicable Code Visit Inpatient E&M: 37327 Disch Hosp
--- NOTE | 2019-02-17 16:11 | DS.PCM_ITS ---
Discharge Date and Diagnosis Date of Admission: 02/11/19 Date of Discharge: 02/13/19 - Primary Discharge Diagnosis #1 acute gallstone pancreatitis #2 chronic cholecystitis #3 cholelithiasis #4 hypertension #5 hypothyroidism - Secondary Discharge Diagnosis Chronic Problems HTN (hypertension) (Chronic) Hypothyroidism (Chronic) Hospital Course and Treatment Operations: cholecystecomy Procedures: None Summary of Care Provided: The patient is a 78 year old M who was seen in the emergency room at [facility] with chief complaint of generalized abdominal pain, work-up in the emergency room showed the patient's lipase to be extremely elevated consistent with acute pancreatitis. Patient was admitted to [place] [address], received IV fluids and IV pain medications, and was seen in consultation by general surgery. General surgery recommended a laparoscopic cholecystectomy which was performed, patient had no complications following surgery. On 02/13/2019, patient was seen and examined: On examination he appeared in good health and spirits. Vital signs as documented. Skin warm and dry and without overt rashes. Neck without JVD. Lungs clear. Heart exam notable for regular rhythm, normal sounds and absence of murmurs, rubs or gallops. Abdomen-soft and nondistended. Extremities nonedematous. Neuro: Cranial nerves II through XII are grossly intact, no focal motor deficits were noted, sensation to light touch and pinprick intact. Psych: Patient is alert and oriented x3, he does not appear anxious or depressed On 02/13/2019, patient was seen and examined and felt to be in stable condition for discharge home - Physical Exam Vital Signs Temp Pulse Resp BP Pulse Ox 98.7 F 68 18 148/80 H 95 02/13/19 14:23 02/13/19 14:23 02/13/19 14:23 02/13/19 14:23 02/13/19 14:23 Oxygen Flow Rate (L/min) 3 Oxygen Delivery Method Room Air Weight: 91.626 kg Body Mass Index (BMI) 28.0 Discharge Activity: Return to Normal Activity Weight Bearing Status: Full weight bearing Home Medications: Medications to take at Discharge Levothyroxine Sodium [Synthroid] 75 mcg PO 02/11/19 Losartan/Hydrochlorothiazide [Losartan-Hctz 50-12.5 mg Tab] 1 each PO 02/11/19 Primary Care Physician: Johnny Rowell MD [Primary Care Provider] - Please follow up with your Primary Care Physician in: in 2 weeks Please Follow Up With: Wilian Garcia MD When: in two weeks Disposition: Home Minutes spent on discharge:: 32 Patient Condition:: Stable Medical Necessity - Tobacco Use Smoking Status: Former smoker Tobacco Use: Cigarettes Meaningful Use Info Meaningful Use Diagnoses (Choose all that apply): None applicable Code Visit Inpatient E&M: 06706 Disch Hosp
== END 2019-02-13 14:37 | disposition home or self-care (01) | DRG 417 ==
PROVIDERS: Anesthesiology; Nurse Practitioner Family; Surgery; Admitting Provider Internal Medicine; Family Provider Internal Medicine; PCP Internal Medicine; Referring Provider Internal Medicine; Visit Provider Internal Medicine
PROC: 0FT44ZZ Resection of Gallbladder, Percutaneous Endoscopic Approach (ICD-10-PCS; CPT 47610; principal; 2019-02-13 07:40)
DX: K80.10 Calculus of gallbladder with chronic cholecystitis without obstruction (principal); K85.10 Biliary acute pancreatitis without necrosis or infection; I12.9 Hypertensive chronic kidney disease with stage 1 through stage 4 chronic kidney disease, or unspecified chronic kidney disease; N18.3 Chronic kidney disease, stage 3 (moderate); E03.9 Hypothyroidism, unspecified; E83.42 Hypomagnesemia; Z79.899 Other long term (current) drug therapy; Z87.891 Personal history of nicotine dependence
CPT/HCPCS: 36415; 74300; 76000; 76705; 80053; 83036; 83690; 83735; 84443; 85025; 85730; 88304; 93005; 97802; J7030; J2405

== ENCOUNTER 2019-10-31 06:46 | Day surgery (SDC) | payer MEDICARE, OTHER, SELFPAY ==
[2019-09-15 09:21] VITALS: BMI 28.0
--- NOTE | 2019-09-17 09:32 | HP_ITS ---
Intake Vital Signs 09/15/19 Blood Pressure 192/92 H 09/15/19 Blood Pressure Location Rt brachial 09/15/19 Blood Pressure Position Sitting 09/15/19 Body Mass Index (BMI) 28.0 09/15/19 Blood Pressure 200/90 H 09/15/19 Blood Pressure Location Lt brachial 09/15/19 Blood Pressure Position Sitting 09/15/19 Height 5 ft 10 in 09/15/19 Weight: 204 lb 1 oz 09/15/19 Body Mass Index (BMI) 29.2 09/15/19 Blood Pressure 216/86 H 09/15/19 Blood Pressure Location Rt brachial 09/15/19 Blood Pressure Position Sitting 09/15/19 Respiratory Rate 20 H 09/15/19 Pulse Rate 59 L 09/15/19 Pulse Ox 100 Intake Visit Reasons: C-Scope Consult Chief Complaint: colonoscopy--fam hx colon ca [employer] Professional Required: No Is patient in pain?: No Allergies No Known Allergies Allergy (Verified 09/15/19 09:05) Medications Levothyroxine Sodium [Synthroid] 75 mcg PO 02/11/19 [History Confirmed 09/15/19] Losartan/Hydrochlorothiazide [Losartan-Hctz 50-12.5 mg Tab] 1 ea PO 02/11/19 [History Confirmed 09/15/19] amlodipine 5 mg tablet 5 mg PO DAILY 09/15/19 [History Confirmed 09/15/19] pantoprazole 20 mg tablet,delayed release 20 mg PO DAILY 09/15/19 [History Confirmed 09/15/19] PFSH Medical History Pancreatitis (Acute) HTN (hypertension) (Chronic) Hypothyroidism (Chronic) Surgical History Hx of cholecystectomy (Acute) Hx of shoulder surgery (Acute) Hx of foot surgery (Acute) Family History Sister Colon cancer Social History (Updated 09/17/19 @ 09:32 by Wilian Garcia MD) Smoking Status: Former smoker second hand exposure: No alcohol intake: current alcohol intake frequency: holidays/special occasions only substance use type: does not use caffeine: Yes what type of physical activity do you participate in: walking frequency: daily HPI HPI HPI: FARZAD LAUREN, is a 79 M who presents to the office today for HPI HPI Surgical H&P: Yes HPI: FARZAD LAUREN is a 79 M who presents to the office today for colonoscopy. The patient reports that he has a sister who had colon cancer and is post to be getting his colonoscopies every 5 years and he is due. He is not having any nausea or vomiting or abdominal pain or blood in his stool. ROS General General: No weight change, appetite, fatigue, colon cancer, breast cancer or weakness HEENT HEENT: No difficulty swallowing, eye injury, eye surgery, swollen glands or hoarseness Endo Endocrine: Yes thyroid disease; no diabetes mellitus, thyroid cancer, Hair loss, heat intolerance or cold intolerance Cardio Cardiovascular: Yes high blood pressure; no murmur, pacemaker, heart disease, atrial fibrillation, heart attack, heart stent, palpitations, shortness of breat with exertion or chest pain Resp Respiratory: No shortness of breath, No sleep apnea, No cough, No COPD, No asthma, No emphysema, No wheezing Gastro Gastrointestinal: No abdominal pain, No nausea or vomiting, No diarrhea, No constipation, No blood in stool, No acid reflux, No hemorrhoids, No ulcers, No gallbladder problem, No black,tarry stools [place] Hematologic: No blood thinners, No blood disorders, No bleeding, No anemia, No blood clots Neuro Neurologic: No weakness Exam Const General: cooperative Orientation: alert, oriented x3 Resp Effort & Inspection: normal respiratory effort Auscultation: clear to auscultation bilaterally Cardio Rate: regular rate Rhythm: regular rhythm Heart Sounds: no murmurs GI Inspection: non-distended Palpation: soft, nontender Assessment & Plan Problems 1. Family history of colon cancer Z80.0 Plan Patient has a history of colon cancer in his sister. He is requiring colonoscopies every 5 years and he is due. Recommend proceeding with colonoscopy. I explained endoscopy in detail to the patient. I explained the risks including but not limited to stroke or heart attack with anesthesia, perforation of the GI tract, bleeding, infection. I explained that any of these could necessitate further emergency surgery. The patient understands and all questions were answered sufficiently. The patient wishes to proceed with procedure. Wilian Garcia MD Pager: [facility] [address] [place] [address], [address] [place] [address] Office: Orders Orders: Colonoscopy Today Z80.0 Coding Level of Care Code Off vis,est,level 3 Diagnoses Family history of colon cancer Z80.0 09/17/19 0932 <Electronically signed by Wilian clifton MD> Date _ Wilian Garcia MD
[2019-10-31] VITALS (8 sets, daily range): BP systolic 86–119; BP diastolic 54–80; PULSE 55–60; RESP 16; TEMP 36.1–36.6; O2SAT 98–100; BMI 29.3
--- NOTE | 2019-10-31 07:09 | H&P.OPEN ---
History of Present Illness Date of Admission: 10/31/19 FARZAD LAUREN, is a 79 M who presents to the office today for colonoscopy. The patient reports that he has a sister who had colon cancer and is post to be getting his colonoscopies every 5 years and he is due. He is not having any nausea or vomiting or abdominal pain or blood in his stool. Past Medical/Surgical History - Planned Operation Planned Operative Procedure/s: COLONOSCOPY Date of Operative Procedure: 10/31/19 Permit Signed: Yes S.O.S: No Is This Patient Having a Total Joint: No - Previous Hospitalizations/Surgeries HX Hospitalizations: No HX of Surgeries: Carpal tunnel release, right ankle/foot surgery and BL shoulder arthroscopy. MIKALA WOLF 01/2019 Any Problems With Anesthesia: No You/Your Family Experience Fever (Hyperthermia) With Anes: No Cholinesterase deficiency: No - Cardiovascular Hx Chest Pain within Last 2 months: No Hx of Irregular Heartbeat and/or Afib: No Hx Heart Attack: No Hx Congestive Heart Failure: No Hx Rheumatic Fever: No Hx Hypertension: Yes - ON MED Hx Internal Defibrillator: No Hx Pacemaker: No Hx Cardiac Catheterization: No Hx Cardiac Surgery/Stents/Etc.: No Hx Stress Test: No HX Edema: No Hx Pain in Legs when Walking/Leg Cramps: No - Respiratory Chronic Cough: No HX of Shortness of Breath: No Hoarseness: No Hx Chronic Obstructive Pulmonary Disease (COPD): No Hx Asthma: No Hx Emphysema: No Hx Sleep Apnea: No CPAP: No BIPAP: No Hx Oxygen Use at Home: No Hx Respiratory Tract Infection/Cold (presently): No Do You Snore Loudly (louder than talking or can be heard): No Do You Often Feel Tired/ Fatigued/ Sleepy Dring Daytime?: No Has Anyone Observed You Stop Breathing During Sleep?: No Result (for STOP score): Negative Hx Smoking: Yes Smoking Status: Former smoker - Gastrointestinal Hx Gastroesophageal Reflux: No Controlled With Meds: No Hx Gastrointestinal Disorders: No Hx Gastrointestinal Bleed: No Hx Ulcer: No Hx Hiatal Hernia: No Difficulty Chewing/Swallowing: No Recent Onset of Swallowing Problems: No Special diet followed at home: Yes Hx Unplanned Weight Loss of 20#: No HX Unplanned Weight Gain of 20#: No - Neurological Hx Seizures: No HX Syncope/Blackout Spells/Unconsciousness: No Hx CVA/Stroke: No Hx Transient Ischemic Attacks (TIA): No Hx Multiple Sclerosis: No Hx Parkinson's Disease: No Hx Head/Neck Injury: No Hx Headaches: No Hx Back Injury/Pain: Yes Recent Onset of Speech Difficulty: No Restless Legs: No Does patient have nerve stimulator: No - Blood Disorder Hx Leukemia: No Bleeding Tendencies: No Hx Deep Vein Thrombosis: No Hx High Cholesterol: No Blood Transmitted Disease: No Hx Hepatitis: No Hx Cirrhosis: No Hx Anemia: No Hx Blood Disorders: No - Reproduction Hx Hysterectomy: No Hx Tubal Ligation: No Are You Post Menopause: No - Genitourinary Hx Renal Disease: No Hx Dialysis: No - Musculoskeletal Hx Arthritis: Yes - BACK Hx Rheumatoid Arthritis: No - Endocrine Hx Diabetes: No Insulin: No Thyroid Disease: Yes - hypothyroidism Hx Steroid Therapy: No - Psycho/Social Hx Substance Use: No Hx Alcohol Use: No Hx Anxiety: No Hx Depression: No Mental Illness: No Hx Dementia: No - Miscellaneous Hx Cancer: No Recent Exposure to Contagious Disease: No Active MRSA: No Hx of C-Diff: No Any Loose Teeth: Yes - FULL SET dentures Allergies No Known Allergies Allergy (Verified 10/31/19 07:03) Maternal Family History: Family History (Last Reviewed 09/15/19 @ 09:04 by Janet Lemus) Sister Colon cancer - Paternal Family History: Family History (Last Reviewed 09/15/19 @ 09:04 by Janet Lemus) Sister Colon cancer - - Discharge Is Pt Admitted From a Correction, or a Senior Care: No Who Could Help: After D/C, Where Do you Plan to Go: Return Home - From the PAT History Number of Risk Factors: 2 - Physical Exam Vitals/I&O's: Body Mass Index (BMI) 28.0 General: Alert, Oriented x3 Neck: No JVD Lungs: Normal air movement Cardiovascular: Regular rate, Regular Rhythm Abdomen: Soft, Non Tender, Non-Distended Assessment/Plan All Active Problems (Last Reviewed 09/15/19 @ 09:04 by Janet Lemus) Hx of cholecystectomy (Acute) Hx of shoulder surgery (Acute) Hx of foot surgery (Acute) Pancreatitis (Acute) 79-year-old male for surveillance colonoscopy due to family history of colon cancer in a first-degree relative 1. I explained endoscopy in detail to the patient. I explained the risks including but not limited to stroke or heart attack with anesthesia, perforation of the GI tract, bleeding, infection. I explained that any of these could necessitate further emergency surgery. The patient understands and all questions were answered sufficiently. The patient wishes to proceed with procedure. Wilian Garcia MD Pager: [facility] [address] [place] [address] [address] [place] [address] Office: Surgery Risks - Colonoscopy Risks Include but are not Limited To: Risks include but are not limited to: Bleeding, perforation requiring further surgery, inability to complete colonoscopy requiring barium enema.
[2019-10-31] MEDS: Lactated Ringers 1,000 ML 100 ML IV (07:20)
--- NOTE | 2019-10-31 08:06 | OP.COLON_ITS ---
Patient Name: Xavier Doyle Procedure Date: 10/31/2019 7:35 AM Date of : 1940 Age: 79 Procedure: Colonoscopy Indications: Family history of colon cancer in a first-degree relative Providers: Wilian Garcia MD Referring MD: Johnny Rowell Medicines: Monitored Anesthesia Care Patient Profile: This is a 79 year old male. Refer to note in patient chart for documentation of history and physical. Last Colonoscopy: 5 years ago. Complications: No immediate complications. Estimated blood loss: Minimal. Procedure: Pre-Anesthesia Assessment: - Prior to the procedure, a History and Physical was performed, and patient medications and allergies were reviewed. The patient's tolerance of previous anesthesia was also reviewed. The risks and benefits of the procedure and the sedation options and risks were discussed with the patient. All questions were answered, and informed consent was obtained. Prior Anticoagulants: The patient has taken no previous anticoagulant or antiplatelet agents. After reviewing the risks and benefits, the patient was deemed in satisfactory condition to undergo the procedure. After I obtained informed consent, the scope was passed under direct vision. Throughout the procedure, the patient's blood pressure, pulse, and oxygen saturations were monitored continuously. The Colonoscope was introduced through the anus and advanced to the cecum, identified by appendiceal orifice and ileocecal valve. The colonoscopy was performed without difficulty. The patient tolerated the procedure well. The quality of the bowel preparation was good. Scope In: 7:47:37 AM Scope Withdrawal Time 0 hours 6 minutes 6 seconds Scope Out: 7:57:48 AM Total Procedure Duration Time 0 hours 10 minutes 11 seconds Findings: The entire examined colon appeared normal on direct and retroflexion views. Impression: - The entire examined colon is normal on direct and retroflexion views. - No specimens collected. Recommendation: - Discharge patient to home. - Resume previous diet. - Continue present medications. - Repeat colonoscopy is not recommended due to current age (66 years or older) for screening purposes. Procedure Code(s): --- Professional --- 20449, Colonoscopy, flexible; diagnostic, including collection of specimen(s) by brushing or washing, when performed (separate procedure) Diagnosis Code(s): --- Professional --- Z80.0, Family history of malignant neoplasm of digestive organs CPT copyright 2017 [employer]. All rights reserved. The codes documented in this report are preliminary and upon award machine operator review may be revised to meet current compliance requirements. Wilian Garcia MD 10/31/2019 8:05:31 AM This report has been signed electronically. Number of Addenda: 0 Note Initiated On: 10/31/2019 7:35 AM
== END 2019-10-31 08:49 | disposition home or self-care (01) ==
LOC: EN 06:47 → AC 06:49
PROVIDERS: Family Provider Internal Medicine; PCP Internal Medicine; Referring Provider Internal Medicine; Visit Provider Surgery
PROC: 0DJD8ZZ Inspection of Lower Intestinal Tract, Via Natural or Artificial Opening Endoscopic (ICD-10-PCS; CPT 45378; principal; 2019-10-31 07:55)
DX: Z80.0 Family history of malignant neoplasm of digestive organs (principal); E03.9 Hypothyroidism, unspecified; I10 Essential (primary) hypertension; Z87.891 Personal history of nicotine dependence; Z90.49 Acquired absence of other specified parts of digestive tract
CPT/HCPCS: G0105; J7120

== ENCOUNTER → 2020-10-25 09:50 | Outpatient (CLI) | payer MEDICARE, OTHER, SELFPAY ==
[2020-10-18 10:57] VITALS: BMI 30.4
--- NOTE | 2020-10-25 09:52 | MRI_ITS ---
STUDY: MRI LEFT KNEE REASON FOR EXAM: Male, 80 years old. Left knee pain. Joint effusion. TECHNIQUE: Standardized fat and water weighted pulse sequences were obtained in all 3 orthogonal planes. COMPARISON: X-ray dated 10/18/2020. FINDINGS: Grade 2/3 cartilage loss the patellofemoral articulation predominating medially. Medial compartment grade 2 cartilage loss. Lateral compartment grade 2/3 cartilage loss. No acute fracture. No acute dislocation. No acute bone distraction. Medial meniscal degeneration without tear. Lateral meniscal degeneration with early degenerative oblique tearing of the meniscal body (coronal image 12 series 6). Moderate volume joint effusion. Large leaking popliteal cyst. Moderate soft tissue swelling. Normal medial collateral ligamentous complex (MCL). Normal distal semimembranosus, gracilis and semitendinosus tendons. Normal proximal tibiofibular articulation. Normal lateral collateral (fibular) ligament. Normal popliteus tendon. Normal biceps femoris tendon. Normal anterior cruciate ligament (ACL). Normal posterior cruciate ligament (PCL). Normal medial and lateral patellar retinaculum. Normal quadriceps tendon. Normal patellar tendon. Linear scarring versus cartilage fragment at the anterior (sagittal image 15 series 4). 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
== END ==
PROVIDERS: PCP Internal Medicine; Referring Provider Internal Medicine; Visit Provider Internal Medicine
DX: S83.207A Unspecified tear of unspecified meniscus, current injury, left knee, initial encounter (principal); M25.469 Effusion, unspecified knee; M25.562 Pain in left knee
CPT/HCPCS: 73721

== ENCOUNTER → 2021-01-03 08:09 | Outpatient (CLI) | payer MEDICARE, OTHER, SELFPAY ==
[2020-12-20 08:23] VITALS: BMI 32.5
[2021-01-03 12:07] LABS: Absolute Lymphocyte Count 0.79 X10^3/uL (0.83-4.51); Absolute Neutrophil Count 2.7 X10^3/uL (2.0-7.7); Basophil# 0.03 X10^3/uL; Basophil% 0.8 % (0-1); Hematocrit 43.7 % (40-54); Hemoglobin 14.5 g/dL (13.0-16.5); Lymphocyte # 0.79 X10^3/ul (4.0); Lymphocyte % 21.2 % (19-41); Mean Corp Hgb Conc 33.2 g/dL (32-36); Mean Corpuscular Hgb 31.5 pg (27.0-32.0); Mean Corpuscular Volume 94.8 fL (80-94); Mean Platelet Vol. 9.6 fl (6.2-12.0); Monocyte# 0.24 X10^3/uL; Monocyte% 6.5 % (0-10); NRBC Flagged by Analyzer 0 % (0-5); Neutrophil # 2.65 X10^3/uL (2.7-7.7); Neutrophil % 71.2 % (47-70); Platelet Count 109 K/mm3 (150-450); RBC Distribution Width CV 13.4 % (11.6-14.6); RBC Distribution Width SD 46.4 fl (35.1-43.9); Red Blood Count 4.61 M/mm3 (4.6-6.2); White Blood Count 3.7 K/mm3 (4.4-11.0)
[2021-01-03 12:31] LABS: Vitamin D,25 Hydroxy 68.5 ng/mL
[2021-01-03 12:38] LABS: ALB/GLOB Ratio 1.2 RATIO (0.9-2.4); AST(SGOT) 33 U/L (15-37); Alanine Aminotransfer ALT/SGPT 64 U/L (16-61); Alkaline Phosphatase 73 U/L (45-117); Anion Gap 5 (5-15); BUN 21 mg/dL (7-18); BUN/Creat Ratio 14.8 RATIO (10-20); Calcium,Total 9.6 mg/dL (8.5-10.1); Chloride 105 mmol/L (98-107); Cholesterol 207 mg/dL (200); Creatinine, Serum 1.42 mg/dL (0.70-1.30); EST Glomerular Filtration Rate 51 mL/min (>60); Est Glom Filt Rate - Afr Amer 62 mL/min (>60); Globulin 3.4 g/dL (2.2-4.2); Glucose 136 mg/dL (74-106); High Density Lipoprotein 45 mg/dL; PSA,Total - Annual Screen 2.89 ng/mL (0.00-4.00); Potassium 4.3 mmol/L (3.5-5.1); Protein, Total 7.4 g/dL (6.4-8.2); Sodium Level 141 mmol/L (136-145); Thyroid Stim Hormone (TSH) 4.51 uIU/mL (0.358-3.74); Triglycerides 170 mg/dL; Very Low Density Lipoprotein 34 mg/dL (5-40)
[2021-01-03 13:37] LABS: Free T3 2.4 pg/mL (2.18-3.98); T4 Free Direct 1.08 ng/dL (0.76-1.46)
== END ==
PROVIDERS: PCP Internal Medicine; Referring Provider Internal Medicine; Visit Provider Internal Medicine
DX: E55.9 Vitamin D deficiency, unspecified (principal); I10 Essential (primary) hypertension; E03.9 Hypothyroidism, unspecified; G56.00 Carpal tunnel syndrome, unspecified upper limb; K85.90 Acute pancreatitis without necrosis or infection, unspecified; N40.0 Benign prostatic hyperplasia without lower urinary tract symptoms; Z12.5 Encounter for screening for malignant neoplasm of prostate
CPT/HCPCS: 36415; 80053; 80061; 82306; 84153; 84439; 84443; 84481; 85025; G0103

== ENCOUNTER → 2021-03-14 09:45 | Outpatient (CLI) | payer MEDICARE, OTHER, SELFPAY ==
[2020-12-20 08:23] VITALS: BMI 32.5
[2021-03-14 13:26] LABS: Free T3 2.7 pg/mL (2.18-3.98); T4 Free Direct 1.06 ng/dL (0.76-1.46); Thyroid Stim Hormone (TSH) 3.59 uIU/mL (0.358-3.74)
== END ==
PROVIDERS: PCP Internal Medicine; Referring Provider Internal Medicine; Visit Provider Internal Medicine
DX: E03.9 Hypothyroidism, unspecified (principal)
CPT/HCPCS: 36415; 84439; 84443; 84481

== ENCOUNTER → 2021-06-20 09:13 | Outpatient (CLI) | payer MEDICARE, OTHER, SELFPAY ==
[2021-06-20 12:03] LABS: Absolute Lymphocyte Count 0.78 X10^3/uL (0.83-4.51); Absolute Neutrophil Count 2.8 X10^3/uL (2.0-7.7); Basophil# 0.04 X10^3/uL; Hematocrit 42.5 % (40-54); Hemoglobin 14.4 g/dL (13.0-16.5); Lymphocyte # 0.78 X10^3/ul (0.83-4.51); Lymphocyte % 19.7 % (19-41); Mean Corp Hgb Conc 33.9 g/dL (32-36); Mean Corpuscular Hgb 31.9 pg (27.0-32.0); Mean Corpuscular Volume 94.2 fL (80-94); Mean Platelet Vol. 9.6 fl (6.2-12.0); Monocyte# 0.33 X10^3/uL; Monocyte% 8.4 % (0-10); NRBC Flagged by Analyzer 0 % (0-5); Neutrophil # 2.77 X10^3/uL (2.7-7.7); Neutrophil % 70.1 % (47-70); Platelet Count 111 K/mm3 (150-450); RBC Distribution Width CV 13.2 % (11.6-14.6); RBC Distribution Width SD 45.1 fl (35.1-43.9); Red Blood Count 4.51 M/mm3 (4.6-6.2)
[2021-06-20 12:18] LABS: Vitamin D,25 Hydroxy 78.3 ng/mL
[2021-06-20 12:27] LABS: ALB/GLOB Ratio 1.2 RATIO (0.9-2.4); AST(SGOT) 44 U/L (15-37); Alanine Aminotransfer ALT/SGPT 91 U/L (16-61); Albumin, Serum 3.9 g/dL (3.2-5.0); Alkaline Phosphatase 71 U/L (45-117); Anion Gap 5 (5-15); BUN 17 mg/dL (7-18); BUN/Creat Ratio 12.6 RATIO (10-20); Calcium,Total 9.4 mg/dL (8.5-10.1); Chloride 105 mmol/L (98-107); Creatinine, Serum 1.35 mg/dL (0.70-1.30); EST Glomerular Filtration Rate 54 mL/min (>60); Est Glom Filt Rate - Afr Amer 66 mL/min (>60); Free T3 2.9 pg/mL (2.18-3.98); Globulin 3.3 g/dL (2.2-4.2); Glucose 151 mg/dL (74-106); Protein, Total 7.2 g/dL (6.4-8.2); Sodium Level 140 mmol/L (136-145); T4 Free Direct 1.04 ng/dL (0.76-1.46); Thyroid Stim Hormone (TSH) 3.91 uIU/mL (0.358-3.74)
== END ==
PROVIDERS: PCP Internal Medicine; Referring Provider Internal Medicine; Visit Provider Internal Medicine
DX: E55.9 Vitamin D deficiency, unspecified (principal); E03.9 Hypothyroidism, unspecified; I10 Essential (primary) hypertension
CPT/HCPCS: 36415; 80053; 82306; 84439; 84443; 84481; 85025

== ENCOUNTER 2021-07-28 07:57 | Inpatient (IN) | payer MEDICARE, OTHER, SELFPAY ==
[2021-07-28] VITALS (23 sets, daily range): BP systolic 113–196; BP diastolic 69–112; PULSE 80–139; RESP 14–25; TEMP 36.4–37.2; O2SAT 95–100; BMI 33.5; BMI 32.6
--- NOTE | 2021-07-28 08:06 | RAD_ITS ---
STUDY: X-RAY CHEST REASON FOR EXAM: Male, 81 years old. Chest pain. Chest heaviness. TECHNIQUE: Single AP portable view of the chest. COMPARISON: None. FINDINGS: EKG electrodes are seen. There is mild elevation of the right hemidiaphragm. No acute infiltrate is seen. There is no demonstrated pleural abnormality. Normal size heart. Normal mediastinum and alfonso. Normal visualized pulmonary arteries. There is atherosclerotic tortuosity of the aortic arch and descending thoracic aorta. Normal visualized thoracic spine. Normal visualized ribs, clavicles, and shoulders. There is no demonstrated abnormality of the visualized soft tissue structures of the upper abdomen. RAD/Chest 1 View (Portable) IMPRESSION: No acute abnormality is present. Electronically Signed: Lisandro Saenz MD at 8:44 EDT , Service support ,
--- NOTE | 2021-07-28 08:06 | EKG12_ITS ---
Test Reason : CP Blood Pressure : / mmHG Vent. Rate : 119 BPM Atrial Rate : 127 BPM P-R Int : 000 ms QRS Dur : 098 ms QT Int : 334 ms P-R-T Axes : 000 017 000 degrees QTc Int : 469 ms Atrial fibrillation Inferior infarct , age undetermined Abnormal ECG Confirmed by BRIAN JOINER, CONNIE ([id number]), development editor MAHESH AGUILAR ([id number]) on 08/01/2021 7:54:47 AM Referred By: Confirmed By:CONNIE TORRES MD
--- NOTE | 2021-07-28 08:07 | ED.VIS.CHEST ---
HPI History of Present Illness Chief Complaint: Chest Pain Informant: patient Onset/Context/Timing Onset: Hours (2-3) Activity at onset: - (Woke up with symptoms) Timing: Continuous Quality: Positive for Tightness Location: Substernal Current Severity: 7/10 Maximum Severity: 7/10 Worsened By: Nothing; Not Worsened By Breathing Relieved By: Nothing Associated Symptoms: Positive for Dyspnea (A little), Lightheadedness (Once no syncope) and Palpitations; Negative for Nausea, Vomiting, Diaphoresis and Cough Narrative Narrative: Patient woke up 530 this morning with chest tightness, palpitations off and on, he felt lightheaded at 1 point when he got up but has not passed out. No history of heart problems. States he was working in the yard last couple days and pushing himself, but he had no symptoms during any of that. No recent illness. No recent travel, hospitalization, immobilization, or surgery. No history of blood clots. No pain or swelling in one of his legs. [facility] Medical History (Updated 07/28/21 @ 10:[address] Amadou Saleem MD) Arthritis BEP (benign enlargement of prostate) Carpal tunnel syndrome Cataracts, bilateral HTN (hypertension) Hypothyroidism Pancreatitis Seasonal allergies Home Medications cholecalciferol (vitamin D3) 1,250 mcg (50,000 unit) capsule 1,250 mcg PO QWEEK #12 cap 12/20/20 [Rx Last Taken Unknown] tamsulosin 0.4 mg capsule 0.4 mg PO QHS #90 cap 12/20/20 [Rx Last Taken Unknown] vit C,E,zinc,Dx-vipni-0-lutein-zeaxanthin 250 mg-2.5 mg-0.5 mg capsule 1 cap PO DAILY cap 03/14/21 [History Last Taken Unknown] meloxicam 15 mg tablet 15 mg PO DAILY #30 tab 04/13/21 [Rx Last Taken Unknown] amlodipine 5 mg tablet 5 mg PO DAILY #90 tab 06/14/21 [Rx Last Taken Unknown] losartan 100 mg tablet 100 mg PO DAILY #90 tab 06/14/21 [Rx Last Taken Unknown] levothyroxine 100 mcg tablet 100 mcg PO DAILY #90 tab 06/20/21 [Rx Last Taken Unknown] Allergy/AdvReac Type Severity Reaction Status Date / Time No Known Allergies Allergy Verified 07/28/21 08:17 Family History Sister Colon cancer Father Diabetes Heart disease Mother Hyperlipemia Surgical History Hx of cholecystectomy Hx of foot surgery Hx of shoulder surgery Social History Smoking Status: Never smoker second hand exposure: No alcohol intake: current alcohol intake frequency: holidays/special occasions only substance use type: does not use caffeine: Yes what type of physical activity do you participate in: walking frequency: daily ROS ROS ED Constitutional Constitutional ED: Denies chills or fever(s) Eyes Eyes: Denies change in vision or diplopia ENT ENT ED: Denies rhinorrhea or sore throat Cardiovascular Cardiovascular: Reports chest pain, dyspnea and palpitations Respiratory/Chest Respiratory/Chest: Denies cough or dyspnea on exertion Gastrointestinal Gastrointestinal: Denies abdominal pain, diarrhea, nausea or vomiting Genitourinary Genitourinary ED: Denies dysuria or hematuria Musculoskeletal Musculoskeletal: Denies back pain or neck pain Integumentary Denies abscess or rash Neurologic Neurologic: Denies headache(s), paresthesias or weakness Psychiatric Psychiatric: Denies anxiety or suicidal thoughts EXAM Physical Exam Const Vital Signs: 07/28/21 08:00 07/28/21 08:10 07/28/21 08:32 Temperature 97.6 F L 98.9 F Temperature Source Temporal Oral Pulse Rate 135 H 139 H 112 H Respiratory Rate 20 H 14 18 Respiratory Effort Normal Blood Pressure 196/112 H 144/99 H 113/72 Blood Pressure Mean 140 114 85 Pulse Ox 98 100 98 Oxygen Delivery Method Room Air Nasal Cannula Nasal Cannula Oxygen Flow Rate (L/min) 2 2 07/28/21 09:27 Temperature Temperature Source Pulse Rate 86 Respiratory Rate 16 Respiratory Effort Blood Pressure 126/72 H Blood Pressure Mean 90 Pulse Ox 99 Oxygen Delivery Method Nasal Cannula Oxygen Flow Rate (L/min) 2 Positive well nourished and well developed General Appearance ED: well developed and NAD HEENT Reports moist mucous membranes normocephalic and atraumatic Eyes PERRL and EOMs intact bilaterally Neck full ROM and supple Resp normal respiratory effort and clear to auscultation bilaterally Cardio no murmurs Cardio Narrative: Irregularly irregular, tachycardic GI non-tender and non-distended Auscultation: normoactive bowel sounds Palpation: soft Back/Spine no CVA tenderness General Back: other FROM Extremity normal to inspection and no calf tenderness General Extremety ED: Negative for edema, pulses abnormal or tenderness General Extremity: Negative for edema or pulses abnormal Neuro oriented x3, CN's II-XII intact bilaterally and no sensory deficits noted Sensorium / Orientation: awake and alert Motor Exam: strength 5/5 throughout Skin no rashes or lesions noted and no wounds Heart Score History: Highly Suspicious ECG: Nonspecific Repolarization Age: >/= 65 years Risk Factors: 1 or 2 Risk Factors Troponin: </= Normal Limit Score: 6 MDM MDM MDM Narrative Medical decision making narrative: Patient is in rapid A. fib without any acute injury pattern. By treating his rate with Cardizem 20 mg, all of his symptoms resolved although he was still in atrial fibrillation with with a better rate. He would waver between a rate of the 80s and 110s. He does not have a known cardiac history, plan is for admission and further testing and evaluation. He was given aspirin, he does not take it daily. He is stable at this time. Lab Data Attestation: I reviewed the patient's lab results. Labs: Laboratory Results - last 24 hr 07/28/21 07/28/21 08:05 08:05 WBC 4.1 L RBC 4.75 Hgb 15.2 Hct 44.1 MCV 92.8 MCH 32.0 MCHC 34.5 RDW Std Deviation 42.9 RDW Coeff of Juan 12.5 Plt Count 105 L MPV 9.1 Immature Gran % (Auto) 0.200 Neut % (Auto) 62.1 Lymph % (Auto) 25.8 Bacon % (Auto) 9.7 Eos % (Auto) 1.0 Baso % (Auto) 1.2 H Absolute Neuts (auto) 2.6 Absolute Lymphs (auto) 1.06 Nucleated RBC % 0 Sodium 141 Potassium 3.7 Chloride 106 Carbon Dioxide 26.0 Anion Gap 9 BUN 22 H Creatinine 1.56 H Estim Creat Clear Calc 39.65 Est GFR (MDRD) Af Amer 55 L Est GFR (MDRD) Non-Af 46 L BUN/Creatinine Ratio 14.1 Glucose 175 H Calcium 9.4 Troponin I High Sens 10 Radiography Diagnostic Testing: Radiology Impression Chest X-Ray 07/28/21 08:06 IMPRESSION: No acute abnormality is present. Electronically Signed: Lisandro Saenz MD at 8:44 EDT , Service support , EKG Initial EKG: Attestation: I personally reviewed and interpreted this EKG as follows: Interpretation: No Acute Injury Pattern Comments: A. fib/a flutter, with RVR Discharge Plan Dx/Rx/DC Orders Clinical Impression: Chest pain, Atrial fibrillation, new onset, Atrial fibrillation with RVR Disposition Disposition: Acute Care Hospital [facility]
[2021-07-28 08:14] LABS: Absolute Lymphocyte Count 1.06 X10^3/uL (0.83-4.51); Absolute Neutrophil Count 2.6 X10^3/uL (2.0-7.7); Basophil# 0.05 X10^3/uL; Basophil% 1.2 % (0-1); Eosinophil# 0.04 X10^3/uL; Hematocrit 44.1 % (40-54); Hemoglobin 15.2 g/dL (13.0-16.5); Lymphocyte # 1.06 X10^3/ul (0.83-4.51); Lymphocyte % 25.8 % (19-41); Mean Corp Hgb Conc 34.5 g/dL (32-36); Mean Corpuscular Volume 92.8 fL (80-94); Mean Platelet Vol. 9.1 fl (6.2-12.0); Monocyte% 9.7 % (0-10); NRBC Flagged by Analyzer 0 % (0-5); Neutrophil # 2.55 X10^3/uL (2.7-7.7); Neutrophil % 62.1 % (47-70); Platelet Count 105 K/mm3 (150-450); RBC Distribution Width CV 12.5 % (11.6-14.6); RBC Distribution Width SD 42.9 fl (35.1-43.9); Red Blood Count 4.75 M/mm3 (4.6-6.2); White Blood Count 4.1 K/mm3 (4.4-11.0)
[2021-07-28] MEDS: 0.9% Normal Saline 1,000 ML 150 ML IV (08:21)
[2021-07-28] MEDS: dilTIAZem 25 MG/5 ML Vial 20 MG IV BOLUS (08:22)
[2021-07-28] MEDS: Aspirin 81 MG TAB.CHEW 324 MG PO (08:22)
[2021-07-28 08:28] LABS: Anion Gap 9 (5-15); BUN 22 mg/dL (7-18); BUN/Creat Ratio 14.1 RATIO (10-20); Calcium,Total 9.4 mg/dL (8.5-10.1); Chloride 106 mmol/L (98-107); Creatinine, Serum 1.56 mg/dL (0.70-1.30); EST Glomerular Filtration Rate 46 mL/min (>60); Est Glom Filt Rate - Afr Amer 55 mL/min (>60); Estimated Creatinine Clearance 39.65 ml/min; Glucose 175 mg/dL (74-106); Potassium 3.7 mmol/L (3.5-5.1); Sodium Level 141 mmol/L (136-145); Troponin-I HS 10 pg/mL (3.0-78.0)
--- NOTE | 2021-07-28 10:31 | ECHOCS_ITS ---
Reason For Study: AFIB/FLUTTER Procedure This was a 2D Doppler, Color Flow transthoracic echocardiogram. Exam performed portable in patient room. Left Ventricle Normal left ventricle. The estimated ejection fraction is EF 50-55 %. Right Ventricle Normal right ventricle. Normal systolic function. Atria The left atrium is moderately enlarged. Normal right atrium. Mitral Valve The mitral valve is structurally normal. No prolapse or stenosis seen. Tricuspid Valve Normal tricuspid valve. Aortic Valve Mild diffuse aortic valve calcification. Pulmonic Valve The pulmonic valve is not well visualized. Great Vessels Normal aortic root. Pericardium/Pleural No pericardial effusion. MMode/2D Measurements & Calculations LVIDd: 4.6 cm IVSd: 1.3 cm Ao root diam: 3.9 cm LVIDs: 3.3 cm LVPWd: 1.2 cm RVDd: 3.8 cm FS: 28.8 % LAV(MOD-bp): 71.4 ml LA A4 area: 22.8 cm2 LA dimension(2D): 4.5 cm LAV(MOD-bp) Indexed: 32.1 ml/m2 LAV(MOD-sp2): 67.1 ml LAV(MOD-sp4): 65.8 ml RA A4 area: 14.9 cm2 Doppler Measurements & Calculations MV E max jack: 108.0 cm/sec Ao V2 max: 140.7 cm/sec LV V1 max: 89.9 cm/sec Ao max P.9 mmHg LV V1 max P.2 mmHg PA V2 max: 88.2 cm/sec ECHO/Echo Complete W/ Contrast Interpretation Summary The estimated ejection fraction is EF 50-55 %. LV systolic function preserved Moerate MR Ordering Physician: Michelle Serna Referring Physician: Maria Teresa Wells Performed By: Cristal Gant, MALCOLM, RVT
[2021-07-28 10:52] LABS: Prothrombin Time (Protime)PT. 12.3 SECONDS (11.7-14.9)
[2021-07-28 10:54] LABS: Partial Thromboplast Time 31.1 Seconds (24.1-36.2)
--- NOTE | 2021-07-28 11:15 | PCS.PANDOC ---
PANDEMIC DOCUMENTATION INITIATED: Date: 07/28/2021 Time: 0461
[2021-07-28 12:00] LABS: Troponin-I HS 14 pg/mL (3.0-78.0)
[2021-07-28] MEDS: 0.9% Saline Lock 10 ML Syringe IV ×2 (12:24→17:28)
[2021-07-28 12:30] LABS: Bedside Glucose 139 mg/dL (70-110)
[2021-07-28] MEDS: Heparin Injection (Vial) 5,000 UNIT/ML VIAL 8000 UNIT IV (12:30)
[2021-07-28] MEDS: HEPARIN/D5w 25,000 UNITS 25,000 UNITS/250 ML IV.SOLN. 15 UNITS IV (12:30)
[2021-07-28 14:11] LABS: Troponin-I HS 14 pg/mL (3.0-78.0)
--- NOTE | 2021-07-28 14:36 | CON.PCM.CA_ITS ---
Documented by User: Jerica ELIZONDO PA 07/28/21 16:49 Assessment & Plan Assessment/Plan (1) Atrial fibrillation with RVR: (2) HTN (hypertension): PLAN: * per pt he does have hx of afib, he had been on coumadin in the past. Attempted to obtain old medical records from [facility] * he dose have a CHADVASC2 of 3, recommend starting him on an anticoagulant, will start eliquis and stop heparin * recommend low dose beta carla for rate control, will stop cardizem * Troponin were negative x 3, with his chest pain that he had on on presentation to ER recommend that he has a stress test on OP basis. HPI Consult Data Date of Consult: 07/28/21 HPI Narrative HPI Narrative: FARZAD LAUREN, is a 81 M who presented to the ED for chest tightness and a faster HR. The chest pain is was new. He sts that he has had Afib in the past, it was felt that it was related to hyperthyroid. He was on coumadin in the past, it was felt that since he has not had any recurrence he could stop this. He is not on an rate limiting medicatons. He does have a hx of HTN. He has does keep himself active. He is currently symptomatic with his Afib. He feels his fluttering. [facility] Medical History (Updated 07/28/21 @ 14:39 by Jerica ELIZONDO PA) Arthritis BEP (benign enlargement of prostate) Carpal tunnel syndrome Cataracts, bilateral HTN (hypertension) Hypothyroidism PAF (paroxysmal atrial fibrillation) Pancreatitis Seasonal allergies Home Medications cholecalciferol (vitamin D3) 1,250 mcg (50,000 unit) capsule 1,250 mcg PO QWEEK #12 cap 12/20/20 [Rx Last Taken 07/27/21 1200] tamsulosin 0.4 mg capsule 0.4 mg PO QHS #90 cap 12/20/20 [Rx Last Taken 07/27/21 22:00] vit C,E,zinc,Ed-xsltc-0-lutein-zeaxanthin 250 mg-2.5 mg-0.5 mg capsule 1 cap PO DAILY cap 03/14/21 [History Last Taken 07/27/21 12:00] meloxicam 15 mg tablet 15 mg PO DAILY #30 tab 04/13/21 [Rx Last Taken 07/28/21 06:00] amlodipine 5 mg tablet 5 mg PO DAILY #90 tab 06/14/21 [Rx Last Taken 07/28/21 05:30] losartan 100 mg tablet 100 mg PO DAILY #90 tab 06/14/21 [Rx Last Taken 07/28/21 06:00] levothyroxine 100 mcg tablet 100 mcg PO DAILY #90 tab 06/20/21 [Rx Last Taken 07/28/21 05:30] Allergy/AdvReac Type Severity Reaction Status Date / Time No Known Allergies Allergy Verified 07/28/21 08:17 Family History Sister Colon cancer Father Diabetes Heart disease Mother Hyperlipemia Surgical History Hx of cholecystectomy Hx of foot surgery Hx of shoulder surgery Social History Smoking Status: Former smoker quit date: 10/29/1968 second hand exposure: No alcohol intake: current alcohol intake frequency: holidays/special occasions only substance use type: does not use caffeine: Yes what type of physical activity do you participate in: walking frequency: daily ROS Constitutional Constitutional: Reports systems reviewed and no addt'l complaints, except as documented Eyes Eyes: Reports systems reviewed and no addt'l complaints, except as documented ENT HEENT: Reports systems reviewed and no addt'l complaints, except as documented Cardiovascular Cardiovascular: Reports as per HPI Respiratory/Chest Respiratory/Chest: Reports systems reviewed and no addt'l complaints, except as documented Gastrointestinal Gastrointestinal: Reports systems reviewed and no addt'l complaints, except as documented Musculoskeletal Musculoskeletal: Reports systems reviewed and no addt'l complaints, except as documented Neurologic Neurologic: Reports systems reviewed and no addt'l complaints, except as documented Physical Exam Const alert, oriented x3, no apparent distress, average body habitus, healthy appearing and well nourished HEENT normocephalic, head/scalp atraumatic, hearing grossly normal bilaterally, external ears normal, external nose normal, nasal mucous membranes and turbinat es normal and moist oral mucous membranes Eyes PERRL, EOMs intact bilaterally, conjunctivae normal and no scleral icterus Neck no lymphadenopathy, supple, no JVD and no carotid bruits Resp normal respiratory effort and clear to auscultation bilaterally Cardio S1 normal heart sound, S2 normal heart sound, no murmurs, no rub, no gallops, no clicks and peripheral pulses 2+ throughout Rate: tachycardic Rhythm: abnormal rhythm irregularly irregular GI normal to inspection, nondistended, normoactive bowel sounds, soft to palpation, non-tender and non-distended Neuro oriented x3, CN's II-XII intact bilaterally, moves all extremities, no focal motor deficits and no sensory deficits noted Charges/Coding Visit Charges Office Visits / Consults: 52889 IP Consult L4 Objective Data Vital Signs: Vital Signs Temp Pulse Resp BP Pulse Ox 97.5 F L 110 H 18 136/80 H 97 07/28/21 12:00 07/28/21 14:00 07/28/21 14:00 07/28/21 14:00 07/28/21 14:00 Oxygen Flow Rate (L/min) 2 Oxygen Delivery Method Nasal Cannula Weight: 227 lb 11.8 oz Body Mass Index (BMI) 32.6 Intake & Output: Intake and Output for Last 24 Hours 07/26/21 07/27/21 07/28/21 23:59 23:59 23:59 Intake Total 456.58 / 456.58 Balance 456.58 / 456.58 Lab / Micro Data Result Diagrams: 07/28/21 08:05 07/28/21 08:05 Labs: Laboratory Results - last 24 hr 07/28/21 08:05: WBC 4.1 L, RBC 4.75, Hgb 15.2, Hct 44.1, MCV 92.8, MCH 32.0, MCHC 34.5, RDW Std Deviation 42.9, RDW Coeff of Juan 12.5, Plt Count 105 L, MPV 9.1, Immature Gran % (Auto) 0.200, Neut % (Auto) 62.1, Lymph % (Auto) 25.8, [place] % (Auto) 9.7, Eos % (Auto) 1.0, Baso % (Auto) 1.2 H, Absolute Neuts (auto) 2.6, Absolute Lymphs (auto) 1.06, Nucleated RBC % 0 07/28/21 08:05: Sodium 141, Potassium 3.7, Chloride 106, Carbon Dioxide 26.0, Anion Gap 9, BUN 22 H, Creatinine 1.56 H, Estim Creat Clear Calc 39.65, Est GFR (MDRD) Af Amer 55 L, Est GFR (MDRD) Non-Af 46 L, BUN/Creatinine Ratio 14.1, Glucose 175 H, Calcium 9.4, Troponin I High Sens 10 07/28/21 08:05: PT 12.3, INR 1.0, APTT 31.1 07/28/21 11:30: Troponin I High Sens 14 07/28/21 12:23: POC Glucose 139 H 07/28/21 13:45: Troponin I High Sens 14 Cardiology Labs/Tests 07/28/21 08:05: WBC 4.1 L, RBC 4.75, Hgb 15.2, Hct 44.1, MCV 92.8, MCH 32.0, MCHC 34.5, Plt Count 105 L, MPV 9.1, Immature Gran % (Auto) 0.200, Neut % (Auto) 62.1, Lymph % (Auto) 25.8, [place] % (Auto) 9.7, Eos % (Auto) 1.0, Baso % (Auto) 1.2 H, Absolute Neuts (auto) 2.6, Nucleated RBC % 0 07/28/21 08:05: Sodium 141, Potassium 3.7, Chloride 106, Carbon Dioxide 26.0, Anion Gap 9, BUN 22 H, Creatinine 1.56 H, Est GFR (MDRD) Af Amer 55 L, Est GFR (MDRD) Non-Af 46 L, BUN/Creatinine Ratio 14.1, Glucose 175 H, Calcium 9.4 07/28/21 08:05: PT 12.3, INR 1.0, APTT 31.1 Rhythm: Afib with HR of 105 EKG: Afib with HR of 118 ECHO: pending Radiography Diagnostic Testing: Radiology Impression Chest X-Ray 07/28/21 08:06 IMPRESSION: No acute abnormality is present. Electronically Signed: Lisandro Saenz MD at 8:44 EDT , Service support , Documented by User: Dr. Janice Jarquin MD 07/28/21 17:02 Assessment & Plan Assessment/Plan (1) HTN (hypertension): (2) Hypothyroidism: (3) Chest pain: (4) PAF (paroxysmal atrial fibrillation): PLAN: Patient seen, examined and evaluated at bedside along with the midlevel Also I review all the current evaluation in the hospital which include the EKG the youth nutritional monitor current lab evaluation and his current medication. Clinical diagnosis of paroxysmal atrial fibrillation Cardiac recommendation plan; 1. I agree with the current documentation by the midlevel with the rate control using beta-carla 2. Anticoagulation using Eliquis 3. Patient presentation with symptoms of palpitation with chest pain. If all series of cardiac biomarker, high sensitive troponins I are negative, to consider evaluation for myocardial ischemia with nuclear stress test which can be set up as an outpatient once the A. fib is controlled. HPI Consult Data Date of Consult: 07/28/21 HPI Narrative Reason for Consultation: A fib with RVR [facility] Medical History (Updated 07/28/21 @ 14:39 by Jerica ELIZONDO, PA) Arthritis BEP (benign enlargement of prostate) Carpal tunnel syndrome Cataracts, bilateral HTN (hypertension) Hypothyroidism PAF (paroxysmal atrial fibrillation) Pancreatitis Seasonal allergies Home Medications cholecalciferol (vitamin D3) 1,250 mcg (50,000 unit) capsule 1,250 mcg PO QWEEK #12 cap 12/20/20 [Rx Last Taken 07/27/21 1200] tamsulosin 0.4 mg capsule 0.4 mg PO QHS #90 cap 12/20/20 [Rx Last Taken 07/27/21 22:00] vit C,E,zinc,Nr-jcqzp-6-lutein-zeaxanthin 250 mg-2.5 mg-0.5 mg capsule 1 cap PO DAILY cap 03/14/21 [History Last Taken 07/27/21 12:00] meloxicam 15 mg tablet 15 mg PO DAILY #30 tab 04/13/21 [Rx Last Taken 07/28/21 06:00] amlodipine 5 mg tablet 5 mg PO DAILY #90 tab 06/14/21 [Rx Last Taken 07/28/21 05:30] losartan 100 mg tablet 100 mg PO DAILY #90 tab 06/14/21 [Rx Last Taken 07/28/21 06:00] levothyroxine 100 mcg tablet 100 mcg PO DAILY #90 tab 06/20/21 [Rx Last Taken 07/28/21 05:30] Allergy/AdvReac Type Severity Reaction Status Date / Time No Known Allergies Allergy Verified 07/28/21 08:17 Family History Sister Colon cancer Father Diabetes Heart disease Mother Hyperlipemia Surgical History Hx of cholecystectomy Hx of foot surgery Hx of shoulder surgery Social History Smoking Status: Former smoker quit date: 10/29/1968 second hand exposure: No alcohol intake: current alcohol intake frequency: holidays/special occasions only substance use type: does not use caffeine: Yes what type of physical activity do you participate in: walking frequency: daily Lab / Micro Data Result Diagrams: 07/28/21 08:05 07/28/21 08:05
[2021-07-28 16:36] LABS: Bedside Glucose 153 mg/dL (70-110)
[2021-07-28] MEDS: Metoprolol Tartrate 25 MG Tablet PO (17:24)
--- NOTE | 2021-07-28 18:26 | HP.PCM.HOS_ITS ---
[facility] - [facility] General Date of Admission: 07/28/21 HPI Narrative FARZAD LAUREN, is a 81 M who presented this morning to the emergency department [facility] with a chief complaint of chest pain. The patient states he woke up at 530 this morning with chest tightness and palpitations that were occurring on and off. He also felt lightheaded at one point but did not pass out. The symptoms have been going on for approximately 2 to 3 hours at presentation and were substernal and he rated them 7 out of 10. An EKG was done in the emergency department showed A. fib with RVR. Initial rates were in the 140s and he was treated with 20 mg IV push of Cardizem which decreased his rate to 80-1 10. Upon my evaluation his heart rates were trending back up into the 130s at times. The patient reported to me that he had palpitations and had been worked up for atrial fibrillation in the past and when I told him he was in A. fib at this time he told me he did not believe me. He states 30 years ago he had similar symptoms and was diagnosed with hyperthyroidism. For this he underwent radioactive iodine and now is on Synthroid. His dose was recently uptitrated. He also states approximately 2 years ago he wore what sounds like a Holter monitor and had 1 foci of tachycardia and he was told that this was not atrial fibrillation. I asked how I could make him believe me because I am looking at his EKG and it was in A. fib and he told me that I would have to be very convincing. I tried to explain the pathophysiology of atrial fibrillation and the consequences with regards to stroke and he did agree to be placed on a Cardizem drip and a heparin drip and to be admitted. His CBC was unremarkable. His coagulation studies were normal. His BUN showed mild serum creatinine elevation from baseline. It appears his baseline serum creatinine is 1.2-1.4 and his current is 1.56. He is not on any diuretics at this time. But does take meloxicam. His EKG shows A. fib with RVR but no ST-T wave changes consistent with ischemia. His initial troponin was 14. Chest x-ray shows no acute processes. He will be admitted to PCU for further management. [facility] Medical History Arthritis BEP (benign enlargement of prostate) Carpal tunnel syndrome Cataracts, bilateral HTN (hypertension) Hypothyroidism PAF (paroxysmal atrial fibrillation) Pancreatitis Seasonal allergies Home Medications cholecalciferol (vitamin D3) 1,250 mcg (50,000 unit) capsule 1,250 mcg PO QWEEK #12 cap 12/20/20 [Rx Last Taken 07/27/21 1200] tamsulosin 0.4 mg capsule 0.4 mg PO QHS #90 cap 12/20/20 [Rx Last Taken 07/27/21 22:00] vit C,E,zinc,Br-vcgqk-0-lutein-zeaxanthin 250 mg-2.5 mg-0.5 mg capsule 1 cap PO DAILY cap 03/14/21 [History Last Taken 07/27/21 12:00] meloxicam 15 mg tablet 15 mg PO DAILY #30 tab 04/13/21 [Rx Last Taken 07/28/21 06:00] amlodipine 5 mg tablet 5 mg PO DAILY #90 tab 06/14/21 [Rx Last Taken 07/28/21 05:30] losartan 100 mg tablet 100 mg PO DAILY #90 tab 06/14/21 [Rx Last Taken 07/28/21 06:00] levothyroxine 100 mcg tablet 100 mcg PO DAILY #90 tab 06/20/21 [Rx Last Taken 07/28/21 05:30] Allergy/AdvReac Type Severity Reaction Status Date / Time No Known Allergies Allergy Verified 07/28/21 08:17 Family History Sister Colon cancer Father Diabetes Heart disease Mother Hyperlipemia Surgical History Hx of cholecystectomy Hx of foot surgery Hx of shoulder surgery Social History Smoking Status: Former smoker quit date: 10/29/1968 second hand exposure: No alcohol intake: current alcohol intake frequency: holidays/special occasions only substance use type: does not use caffeine: Yes what type of physical activity do you participate in: walking frequency: daily ROS Constitutional Constitutional: Reports weakness; Denies anorexia, change in weight, chills, fatigue, fever(s), malaise, night sweats or other Eyes Eyes: Denies blurry vision, change in eye color, change in vision, discharge from eye(s), double vision, erythema, eye pain, loss of vision or other ENT HEENT: Denies abnormal hearing, dysphagia, ear pain, epistaxis, headache(s), hearing loss, nasal congestion, nasal discharge, post nasal drip, sinus pressure, sore throat or other Cardiovascular Cardiovascular: Reports chest pain, lightheadedness and palpitations; Denies claudication, dyspnea on exertion, edema, orthopnea, paroxysmal nocturnal dyspnea, rapid heart rate, syncope or other Respiratory/Chest Respiratory/Chest: Denies cough, dyspnea, excessive phlegm production, hemoptysis, productive cough, shortness of breath at rest, shortness of breath with exertion, wheezing or other Gastrointestinal Gastrointestinal: Denies abdominal pain, coffee ground emesis, constipation, diarrhea, dyspepsia, hematemesis, hematochezia, loose stools, melena, nausea, vomiting or other Genitourinary Genitourinary: Reports difficulty urinating and urinary hesitancy; Denies burning urination, dysuria, hematuria, nocturia, urinary frequency, urinary incontinence, urinary urgency or other Musculoskeletal Musculoskeletal: Denies arthralgias, back pain, joint pain, joint stiffness, joint swelling, myalgias, neck pain or other Neurologic Neurologic: Denies abnormal gait, abnormal speech, confusion, disequilibrium, dizziness, focal weakness, headache(s), numbness, paresthesias, seizure-like activity, seizures, syncope, tingling, tremor(s) or other Psychiatric Psychiatric: Denies anxiety, depression, homicidal ideation, suicidal ideation o r other Endocrine Endocrinology: Denies change in body appearance, cold intolerance, excessive sweating, heat intolerance, polydipsia, polyuria or other Hematologic/Lymphatic Hematologic/Lymphatic: Reports easy bruising; Denies anemia, easy bleeding, lymphadenopathy or other Allergic/Immunologic Allergic/Immunologic: Denies rhinitis, hives, eczemia, asthma or other Vital Signs Vital Signs Vital Signs: 07/28/21 08:00 07/28/21 08:10 07/28/21 08:32 Temperature 97.6 F L 98.9 F Temperature Source Temporal Oral Pulse Rate 135 H 139 H 112 H Respiratory Rate 20 H 14 18 Respiratory Effort Normal Respiratory Depth Respiratory Pattern Blood Pressure 196/112 H 144/99 H 113/72 Blood Pressure Mean 140 114 85 Blood Pressure Source Blood Pressure Position Blood Pressure Location Pulse Ox 98 100 98 Oxygen Delivery Method Room Air Nasal Cannula Nasal Cannula Oxygen Flow Rate (L/min) 2 2 07/28/21 09:27 07/28/21 11:19 07/28/21 12:00 Temperature 98.9 F 97.5 F L Temperature Source Oral Oral Pulse Rate 86 100 116 H Respiratory Rate 16 17 20 H Respiratory Effort Respiratory Depth Respiratory Pattern Blood Pressure 126/72 H 126/72 H 144/96 H Blood Pressure Mean 90 90 112 Blood Pressure Source Monitor Blood Pressure Position Semi-Fowlers Blood Pressure Location Left Arm Pulse Ox 99 96 99 Oxygen Delivery Method Nasal Cannula Nasal Cannula Oxygen Flow Rate (L/min) 2 2 07/28/21 12:05 07/28/21 12:11 07/28/21 12:15 Temperature Temperature Source Pulse Rate 94 128 H 105 H Respiratory Rate 15 14 Respiratory Effort Respiratory Depth Respiratory Pattern Blood Pressure 148/99 H 150/80 H Blood Pressure Mean 115 103 Blood Pressure Source Monitor Monitor Blood Pressure Position Semi-Fowlers Semi-Fowlers Blood Pressure Location Left Arm Left Arm Pulse Ox 99 100 Oxygen Delivery Method Nasal Cannula Nasal Cannula Oxygen Flow Rate (L/min) 2 2 07/28/21 12:30 07/28/21 12:45 07/28/21 13:00 Temperature Temperature Source Pulse Rate 105 H 114 H 119 H Respiratory Rate 16 16 17 Respiratory Effort Respiratory Depth Respiratory Pattern Blood Pressure 154/94 H 171/109 H 140/69 H Blood Pressure Mean 114 129 92 Blood Pressure Source Monitor Monitor Monitor Blood Pressure Position Semi-Fowlers Semi-Fowlers Semi-Fowlers Blood Pressure Location Left Arm Left Arm Left Arm Pulse Ox 100 100 100 Oxygen Delivery Method Nasal Cannula Nasal Cannula Nasal Cannula Oxygen Flow Rate (L/min) 2 2 2 07/28/21 13:13 07/28/21 13:30 07/28/21 14:00 Temperature Temperature Source Pulse Rate 101 H 110 H Respiratory Rate 18 18 Respiratory Effort Normal Non-Labored Respiratory Depth Normal Respiratory Pattern Normal Blood Pressure 159/109 H 136/80 H Blood Pressure Mean 125 98 Blood Pressure Source Monitor Monitor Blood Pressure Position Semi-Fowlers Semi-Fowlers Blood Pressure Location Left Arm Left Arm Pulse Ox 99 97 Oxygen Delivery Method Nasal Cannula Nasal Cannula Nasal Cannula Oxygen Flow Rate (L/min) 2 2 2 07/28/21 15:00 07/28/21 16:00 07/28/21 16:20 Temperature Temperature Source Pulse Rate 101 H 106 H Respiratory Rate 20 H 22 H Respiratory Effort Normal Non-Labored Respiratory Depth Normal Respiratory Pattern Normal Blood Pressure 130/88 H 157/89 H Blood Pressure Mean 102 111 Blood Pressure Source Monitor Monitor Blood Pressure Position Semi-Fowlers Semi-Fowlers Blood Pressure Location Left Arm Left Arm Pulse Ox 96 97 97 Oxygen Delivery Method Nasal Cannula Room Air Room Air Oxygen Flow Rate (L/min) 2 07/28/21 17:00 07/28/21 17:24 07/28/21 18:00 Temperature 97.8 F Temperature Source Oral Pulse Rate 96 101 H 99 Respiratory Rate 25 H 21 H Respiratory Effort Respiratory Depth Respiratory Pattern Blood Pressure 129/83 H 129/83 H 144/93 H Blood Pressure Mean 98 110 Blood Pressure Source Monitor Monitor Blood Pressure Position Semi-Fowlers Semi-Fowlers Blood Pressure Location Left Arm Left Arm Pulse Ox 96 95 Oxygen Delivery Method Room Air Room Air Oxygen Flow Rate (L/min) Weight Weight: 103.3 kg Body Mass Index (BMI) 32.6 Physical Exam Const alert, oriented x3 and no apparent distress Constitutional Narrative: Obese white male sitting up in bed, at bedside, patient appears nontoxic and comfortable at this time, currently is denying any pain General Appearance: cooperative HEENT normocephalic, head/scalp atraumatic, hearing grossly normal bilaterally and moist oral mucous membranes HEENT Narrative: Mallampati 2-3, no thrush Eyes PERRL, EOMs intact bilaterally and conjunctivae normal Neck no lymphadenopathy, supple, no JVD and no carotid bruits Neck Narrative: Trachea midline, no thyroid enlargement or nodules noted Resp normal respiratory effort, no retractions, no use of accessory muscles and clear to auscultation bilaterally Auscultation: Negative for crackles, rales, rhonchi or wheezes Cardio S1 normal heart sound, S2 normal heart sound, no murmurs, no rub, no gallops, no clicks and no JVD Cardio Narrative: Irregular regular rhythm and tachycardic GI normal to inspection, nondistended, normoactive bowel sounds, soft to palpation, non-tender and non-distended Extremity no clubbing, cyanosis or edema Peripheral Pulses: Yes pulses 2+ throughout Skin no rashes or lesions noted, no wounds, skin turgor normal, no jaundice, no petechiae and no mottling Neuro oriented x3, CN's II-XII intact bilaterally, moves all extremities and no focal motor deficits Sensorium / Orientation: awake, alert, oriented to person, oriented to place and oriented to time Speech: speech normal Motor Exam: strength 5/5 throughout Psych affect normal Results Lab / Micro Data Result Diagrams: 07/28/21 08:05 07/28/21 08:05 Labs: Laboratory Results - last 24 hr 07/28/21 08:05: WBC 4.1 L, RBC 4.75, Hgb 15.2, Hct 44.1, MCV 92.8, MCH 32.0, MCHC 34.5, RDW Std Deviation 42.9, RDW Coeff of Juan 12.5, Plt Count 105 L, MPV 9.1, Immature Gran % (Auto) 0.200, Neut % (Auto) 62.1, Lymph % (Auto) 25.8, [place] % (Auto) 9.7, Eos % (Auto) 1.0, Baso % (Auto) 1.2 H, Absolute Neuts (auto) 2.6, Absolute Lymphs (auto) 1.06, Nucleated RBC % 0 07/28/21 08:05: Sodium 141, Potassium 3.7, Chloride 106, Carbon Dioxide 26.0, Anion Gap 9, BUN 22 H, Creatinine 1.56 H, Estim Creat Clear Calc 39.65, Est GFR (MDRD) Af Amer 55 L, Est GFR (MDRD) Non-Af 46 L, BUN/Creatinine Ratio 14.1, Glucose 175 H, Calcium 9.4, Troponin I High Sens 10 07/28/21 08:05: PT 12.3, INR 1.0, APTT 31.1 07/28/21 11:30: Troponin I High Sens 14 07/28/21 12:23: POC Glucose 139 H 07/28/21 13:45: Troponin I High Sens 14 07/28/21 16:21: POC Glucose 153 H Radiology Impression Chest X-Ray 07/28/21 08:06 IMPRESSION: No acute abnormality is present. Electronically Signed: Lisandro Saenz MD at 8:44 EDT , Service support , Assessment & Plan Assessment/Plan (1) PAF (paroxysmal atrial fibrillation): (2) Stage 3b chronic kidney disease: PLAN: Atrial fibrillation with RVR -This is new onset as far as diagnosis but it sounds like he may have had episodes previously -Check TSH -Check echocardiogram -Start Cardizem drip -Patient is agreeable to heparin drip but does not want to be placed on Coumadin and would prefer DOAC if needed -Cycle cardiac enzymes -Consult cardiology since patient is in disbelief that he has atrial fibrillation Chest pain -Resolved -Cycle cardiac enzymes CKD stage IIIb -Serum creatinine is mildly elevated from baseline however not elevated enough to call this JERZY on CKD -Hold meloxicam but continue losartan -Would recommend discontinuation of meloxicam at baseline -Repeat BMP in a.m. -Serum baseline creatinine appears to be 1.2-1.4 BPH -Continue Flomax Hypertension -Continue losartan 100 mg daily -Hold amlodipine with the anticipation that he will need either beta-carla or calcium channel carla for rate control -Monitor blood pressure Hypothyroidism -Continue Synthroid -Check TSH in a.m. DVT prophylaxis -Heparin drip CODE STATUS -Full code
[2021-07-28] MEDS: Tamsulosin HCl 0.4 MG Capsule PO (21:50)
[2021-07-28] MEDS: APIXABAN 5 MG TABLET PO (21:50)
[2021-07-28 22:05] LABS: Bedside Glucose 142 mg/dL (70-110)
[2021-07-29 03:01] VITALS: PULSE 95
[2021-07-29 03:50] VITALS: BP 122/74; PULSE 77; RESP 16; TEMP 36.7; O2SAT 97
[2021-07-29 05:12] LABS: Absolute Lymphocyte Count 1.27 X10^3/uL (0.83-4.51); Absolute Neutrophil Count 2.5 X10^3/uL (2.0-7.7); Basophil# 0.04 X10^3/uL; Hematocrit 39.7 % (40-54); Hemoglobin 13.8 g/dL (13.0-16.5); Lymphocyte # 1.27 X10^3/ul (0.83-4.51); Lymphocyte % 30.8 % (19-41); Mean Corp Hgb Conc 34.8 g/dL (32-36); Mean Corpuscular Hgb 32.2 pg (27.0-32.0); Mean Corpuscular Volume 92.5 fL (80-94); Mean Platelet Vol. 9.4 fl (6.2-12.0); Monocyte# 0.35 X10^3/uL; Monocyte% 8.5 % (0-10); NRBC Flagged by Analyzer 0 % (0-5); Neutrophil # 2.46 X10^3/uL (2.7-7.7); Neutrophil % 59.5 % (47-70); Platelet Count 106 K/mm3 (150-450); RBC Distribution Width CV 12.7 % (11.6-14.6); RBC Distribution Width SD 42.9 fl (35.1-43.9); Red Blood Count 4.29 M/mm3 (4.6-6.2); White Blood Count 4.1 K/mm3 (4.4-11.0)
[2021-07-29 05:56] LABS: AST(SGOT) 42 U/L (15-37); Alanine Aminotransfer ALT/SGPT 82 U/L (16-61); Alkaline Phosphatase 54 U/L (45-117); Anion Gap 7 (5-15); BUN 22 mg/dL (7-18); BUN/Creat Ratio 14.8 RATIO (10-20); Calcium,Total 8.7 mg/dL (8.5-10.1); Chloride 107 mmol/L (98-107); Creatinine, Serum 1.49 mg/dL (0.70-1.30); EST Glomerular Filtration Rate 48 mL/min (>60); Est Glom Filt Rate - Afr Amer 59 mL/min (>60); Estimated Creatinine Clearance 41.51 ml/min; Globulin 3.1 g/dL (2.2-4.2); Glucose 152 mg/dL (74-106); Potassium 3.8 mmol/L (3.5-5.1); Protein, Total 6.1 g/dL (6.4-8.2); Sodium Level 140 mmol/L (136-145); Thyroid Stim Hormone (TSH) 7.12 uIU/mL (0.358-3.74)
[2021-07-29] MEDS: Levothyroxine 100 MCG Tablet PO (06:28)
[2021-07-29 06:36] LABS: Bedside Glucose 159 mg/dL (70-110)
[2021-07-29 07:00] VITALS: PULSE 111
[2021-07-29 09:31] VITALS: BP 150/89; PULSE 86; RESP 18; TEMP 36.7; O2SAT 98
[2021-07-29] MEDS: APIXABAN 5 MG TABLET PO (09:35)
[2021-07-29] MEDS: Losartan Potassium 100 MG Tablet PO (09:35)
[2021-07-29 09:36] VITALS: BP 150/89; PULSE 86
[2021-07-29] MEDS: Metoprolol Tartrate 25 MG Tablet PO (09:36)
[2021-07-29] MEDS: Multivitamin (Healthy Eyes) Capsule 1 CAP PO (09:36)
--- NOTE | 2021-07-29 10:06 | PCM.DC ---
Discharge Instructions Diet Discharge Diet: Low fat / Low cholesterol and 2000 mg Sodium Diet Activity Discharge Activity: Return to Normal Activity and May Not Drive Weight Bearing Status: Weight bearing as tolerated Dressing / Incision Call your doctor if you observe: Fever of 101 or Higher, Coldness, Increased Pain, Numbness or Tingling, Change in Color, Inability to urinate, Inability to have a bowel movement, Shortness of breath, Dizziness, Fainting spells, Swelling in the ankles, Chest pain, Prolonged hiccupping, Increased palpitations (irregular heartbeat), Calf discomfort and Uncontrolled pain Follow Up Care Test Results: Test results from this visit will be discussed in further detail at your follow-up appointment, if applicable. Discharge Plan Admission Admit Date/Time: 07/28/21 10:24 Primary Reason for Your Visit: A. fib with RVR Attending Provider: Asael Serrano Primary Care Provider: Maria Teresa Wells Consulting Providers: Janice Jarquin Discharge Orders/Prescriptions Prescriptions: New Eliquis 5 mg Tablet 5 mg PO BID Qty: 60 RF: 0 diltiazem HCl 120 mg Capsule,Extended Release 24hr 120 mg PO DAILY Qty: 30 RF: 2 metoprolol tartrate 25 mg Tablet 25 mg PO BID Qty: 60 RF: 2 Continued cholecalciferol (vitamin D3) 1,250 mcg (50,000 unit) capsule 1,250 mcg PO QWEEK Qty: 12 RF: 1 tamsulosin 0.4 mg capsule 0.4 mg PO QHS Qty: 90 RF: 1 vit C,E,Zn,Ip-aukhc8-wno-zeax 250-2.5-0.5 mg capsule 1 cap PO DAILY RF: 0 losartan 100 mg tablet 100 mg PO DAILY Qty: 90 RF: 1 levothyroxine 100 mcg tablet 100 mcg PO DAILY Qty: 90 RF: 1 Discontinued meloxicam 15 mg tablet 15 mg PO DAILY Qty: 30 RF: 0 amlodipine 5 mg tablet 5 mg PO DAILY Qty: 90 RF: 1 Referrals / Follow Up: Maria Teresa Wells MD [Primary Care Provider] - Within 2 Weeks Enrico Purcell MD [STAFF PHYSICIAN] - 08/17/21 10:00 am (With Jerica Alfaro in 2 weeks) Disposition Disposition (needs filled in before D/C Order can be placed): Home, Self Care
--- NOTE | 2021-07-29 10:12 | PCM.DC.SUM ---
Providers Date of Admission: 07/28/21 Primary Care Physician: Dr. Maria Teresa Wells MD Consultations 07/28/21 11:16 Consult: Cardiology Routine Consulting Provider: Janice Jarquin Reason for Consult: afib with RVR new EMERGENT Consult: No MD Notified: Yes Date Notified: 07/28/21 Time Notified: 11:20 Method of Notification: Text Reason For Visit: NEW ONSET A-FIB WITH RVR Diagnosis Discharge Diagnosis (1) PAF (paroxysmal atrial fibrillation): Status: Acute Code(s): I48.0 - Paroxysmal atrial fibrillation (2) Stage 3b chronic kidney disease: Status: Acute Code(s): N18.32 - Chronic kidney disease, stage 3b Medications at Discharge Home Medications cholecalciferol (vitamin D3) 1,250 mcg (50,000 unit) capsule 1,250 mcg PO QWEEK #12 cap 12/20/20 tamsulosin 0.4 mg capsule 0.4 mg PO QHS #90 cap 12/20/20 vit C,E,zinc,Nh-cjcut-0-lutein-zeaxanthin 250 mg-2.5 mg-0.5 mg capsule 1 cap PO DAILY cap 03/14/21 levothyroxine 100 mcg tablet 100 mcg PO DAILY #90 tab 06/20/21 apixaban [Eliquis] 5 mg PO BID #60 tab 07/29/21 diltiazem HCl 120 mg PO DAILY #30 cap 07/29/21 levothyroxine 25 mcg PO DAILY #30 tab 07/29/21 losartan 100 mg PO DAILY #90 tab 07/29/21 metoprolol tartrate 25 mg PO BID #60 tab 07/29/21 Hospital Course Summary of Care Provided Hospital Course: This is 81-year-old patient woman was admitted with chest tightness and palpitation on the day of admission. EKG in ER shows A. fib with RVR patient was admitted. Patient was put on Cardizem drip and heparin drip. Initially it seems patient had new onset A. fib but patient said probably had remote A. fib episode in the past as per the nursing staff. Atrial fibrillation with RVR: Heart rate was controlled with Cardizem drip transition to oral Cardizem. On metoprolol. TSH 7.12. Troponins normal. 2D echo EF 50 to 55%, LV systolic function preserved. Moderate MR. Patient seen was digital account coordinator and plan is rate control and advised to follow-up in cardiology clinic as an outpatient 4 to 6 weeks for DCCV. Patient is discharged on Eliquis. Atypical chest pain probably due to A. fib with RVR: Resolved serial lab serum troponins negative. CKD stage IIIb -Serum creatinine is mildly elevated from baseline but not JERZY on CKD. Meloxicam discontinued. BPH -Continue Flomax Hypertension: Patient on losartan 100 mg daily and amlodipine 5 mg at home. Patient very concerned of hypotension with addition of 2 more drugs, metoprolol and Cardizem and therefore amlodipine discontinued. Hypothyroidism: TSH elevated. Synthroid dose increased. DVT prophylaxis On Eliquis CODE STATUS -Full code Discharge medication reconciliation done. Discharge follow-up instructions completed. Discharge process discussed with the patient and all questions were answered to patient's satisfaction. Discharge medications including metoprolol Cardizem, losartan explained to the patient Total time spent, exact 35 minutes on discharge meds reconciliation, examination, coordination of care with nurses and ancillary staff, review of imaging and blood test and discussion with the patient on follow-up instructions Physical Exam Narrative Physical exam General: Alert, Oriented x3, Cooperative, BMI 32.7 kg/m?, morbid obesity HEENT: Atraumatic, PERRLA, EOMI, Normocephalic Oral: No Gingival or Mucosal Lesions/ Ulcerations Neck: Supple, No JVD, Negative Carotid Bruits Lungs: Air entry diminished in bilateral lung bases. No crepitation/rhonchi Cardiovascular: A. fib, heart rate 70 to 80s, Normal S1, Normal S2, No murmurs Abdomen: Bowel Sounds Present, Soft, Non Tender, Non-Distended : No renal angle tenderness. No suprapubic tenderness. Extremities: No edema, Capillary Refill Less than 3 Seconds Skin: No rashes, No breakdown Musculoskeletal: No Tenderness to Palpation of Joints or Extremities Neurological: Cranial nerves II-XII grossly intact, DTR 2+/4 and Symmetrical, Neuro grossly intact Psych/Mental Status: Normal Affect, Appropriate. Weight / BMI Weight Weight: 227 lb 11.8 oz Body Mass Index (BMI) 32.6 ABG / Lab / Microbiology Data Result Diagrams: 07/29/21 04:38 07/29/21 04:38 Laboratory: Laboratory Results - last 24 hr 07/28/21 08:05: PT 12.3, INR 1.0, APTT 31.1 07/28/21 11:30: Troponin I High Sens 14 07/28/21 12:23: POC Glucose 139 H 07/28/21 13:45: Troponin I High Sens 14 07/28/21 16:21: POC Glucose 153 H 07/28/21 21:52: POC Glucose 142 H 07/29/21 04:38: WBC 4.1 L, RBC 4.29 L, Hgb 13.8, Hct 39.7 L, MCV 92.5, MCH 32.2 H, MCHC 34.8, RDW Std Deviation 42.9, RDW Coeff of Juan 12.7, Plt Count 106 L, MPV 9.4, Immature Gran % (Auto) 0.200, Neut % (Auto) 59.5, Lymph % (Auto) 30.8, [place] % (Auto) 8.5, Eos % (Auto) 0.0, Baso % (Auto) 1.0, Absolute Neuts (auto) 2.5, Absolute Lymphs (auto) 1.27, Nucleated RBC % 0 07/29/21 04:38: Sodium 140, Potassium 3.8, Chloride 107, Carbon Dioxide 26.0, Anion Gap 7, BUN 22 H, Creatinine 1.49 H, Estim Creat Clear Calc 41.51, Est GFR (MDRD) Af Amer 59 L, Est GFR (MDRD) Non-Af 48 L, BUN/Creatinine Ratio 14.8, Glucose 152 H, Calcium 8.7, Total Bilirubin 0.80, AST 42 H, ALT 82 H, Alkaline Phosphatase 54, Total Protein 6.1 L, Albumin 3.0 L, Globulin 3.1, Albumin/Globulin Ratio 1.0, TSH 7.12 H 07/29/21 06:27: POC Glucose 159 H Radiography Diagnostic Testing: Radiology Impression Echocardiogram 07/28/21 10:31 Interpretation Summary The estimated ejection fraction is EF 50-55 %. LV systolic function preserved Moerate MR Ordering Physician: Michelle Serna Referring Physician: Maria Teresa Wells Performed By: Cristal Gant RDCS, RVT D/C Instructions Discharge Diet: Low fat / Low cholesterol and 2000 mg Sodium Diet Weight Bearing Status: Weight bearing as tolerated Call your doctor if you observe: Fever of 101 or Higher, Coldness, Increased Pain, Numbness or Tingling, Change in Color, Inability to urinate, Inability to have a bowel movement, Using more than 1 pad per hour, Shortness of breath, Dizziness, Fainting spells, Swelling in the ankles, Chest pain, Prolonged hiccupping, Increased palpitations (irregular heartbeat), Calf discomfort and Uncontrolled pain Meaningful Use Info Meaningful Use Diagnoses (Choose all that apply): None applicable Discharge Plan Admission Admit Date/Time: 07/28/21 10:24 Primary Reason for Your Visit: A. fib with RVR Attending Provider: Asael Serrano Primary Care Provider: Maria Teresa Wells Consulting Providers: Janice Jarqiun Discharge Orders/Prescriptions Prescriptions: New Eliquis 5 mg Tablet 5 mg PO BID Qty: 60 RF: 0 diltiazem HCl 120 mg Capsule,Extended Release 24hr 120 mg PO DAILY Qty: 30 RF: 2 metoprolol tartrate 25 mg Tablet 25 mg PO BID Qty: 60 RF: 2 levothyroxine 25 mcg tablet 25 mcg PO DAILY Qty: 30 RF: 0 Continued cholecalciferol (vitamin D3) 1,250 mcg (50,000 unit) capsule 1,250 mcg PO QWEEK Qty: 12 RF: 1 tamsulosin 0.4 mg capsule 0.4 mg PO QHS Qty: 90 RF: 1 vit C,E,Zn,Ka-hkuqw2-oyz-zeax 250-2.5-0.5 mg capsule 1 cap PO DAILY RF: 0 losartan 100 mg tablet 100 mg PO DAILY Qty: 90 RF: 1 levothyroxine 100 mcg tablet 100 mcg PO DAILY Qty: 90 RF: 1 Discontinued meloxicam 15 mg tablet 15 mg PO DAILY Qty: 30 RF: 0 amlodipine 5 mg tablet 5 mg PO DAILY Qty: 90 RF: 1 Referrals / Follow Up: Maria Teresa Wells MD [Primary Care Provider] - Within 2 Weeks Enrico Purcell MD [STAFF PHYSICIAN] - 08/17/21 10:00 am (With Jerica Alfaro in 2 weeks) Disposition Disposition (needs filled in before D/C Order can be placed): Home, Self Care Charges/Coding Visit Charges Inpatient E&M: 98688 Disch Hosp
[2021-07-29] MEDS: dilTIAZem CD 120 MG Capsule PO (10:16)
--- NOTE | 2021-07-29 10:35 | CASEMGMT ---
AGUSTO SONG assessment: Face to Face with patient for initial transition planning/care coordination assessment. AGUSTO SONG introduced self and role at [facility], pt voices understanding and consents to assessment. Pt is sitting up in bed in no distress on room air. Pt is A/Ox4 and answers all questions appropriately. Pt's is at bedside during assessment. Care providers, pharmacy, and demographics verified. Presentation: Pt c/o tightness across chest upon waking this am Admitting dx: New onset Afib RVR PCP: Priscilla Specialists: Pt states no current specialists. Preferred Pharmacy: [facility]-pt to be sent home on Eliquis and med e-scribed to pharm-per pharm, pt's co-pay is $485 and pt is updated and provided with Eliquis 30 day free trial card at this time, voices understanding. Pt aware to discuss with cardiology at f/u if any further concerns with cost, voices understanding. Insurance: MCR A/B, MMO Prescription Benefit: [employer] Living Will/HPOA: Pt has LW/HPOA and is aware that they are on file at [facility]. Pt states his , Shivani Doyle, is HPOA. LNOK: Shivani Doyle, Living Arrangements: Pt states lives with in 2 story home and states no concerns at home. Pt states is independent with ADL's. Transportation: Pt states drives self and states no transportation concerns. DME/HHC: Pt states no current DME or need for any further DME. Pt states no hx of HHC or SNF. Pt states no concerns with going home at time of discharge. Pt is retired. Pt states quit smoking in 1968 and seldom drinks ETOH. Pt states no further concerns/needs. CM to follow for any further discharge planning/needs. Advised pt to ask for CM if any further questions/concerns/needs arise, voices understanding. Pt Goal: Home Plan: [place] AGUSTO SONG
--- NOTE | 2021-07-29 10:43 | PN.CARD_ITS ---
Documented by User: MIKHAIL Powell 07/29/21 10:50 Subjective Subjective Pt seen and examined. No new complaints. He is still aware of his irregular heart rhythm but feels that it is better than last night. He does not have any chest heaviness. Objective Data Vital Signs: Vital Signs Temp Pulse Resp BP Pulse Ox 98.0 F 86 18 150/89 H 98 07/29/21 09:31 07/29/21 09:36 07/29/21 09:31 07/29/21 09:36 07/29/21 09:31 Oxygen Flow Rate (L/min) 2 Oxygen Delivery Method Room Air Weight: 227 lb 11.8 oz Body Mass Index (BMI) 32.6 Intake & Output: Intake and Output for Last 24 Hours 07/27/21 07/28/21 07/29/21 23:59 23:59 23:59 Intake Total 553.91 / 553.91 Output Total 750 / 750 Balance -196.09 / -196.09 Lab / Micro Data Result Diagrams: 07/29/21 04:38 07/29/21 04:38 Labs: Laboratory Results - last 24 hr 07/28/21 08:05: PT 12.3, INR 1.0, APTT 31.1 07/28/21 11:30: Troponin I High Sens 14 07/28/21 12:23: POC Glucose 139 H 07/28/21 13:45: Troponin I High Sens 14 07/28/21 16:21: POC Glucose 153 H 07/28/21 21:52: POC Glucose 142 H 07/29/21 04:38: WBC 4.1 L, RBC 4.29 L, Hgb 13.8, Hct 39.7 L, MCV 92.5, MCH 32.2 H, MCHC 34.8, RDW Std Deviation 42.9, RDW Coeff of Juan 12.7, Plt Count 106 L, MPV 9.4, Immature Gran % (Auto) 0.200, Neut % (Auto) 59.5, Lymph % (Auto) 30.8, [place] % (Auto) 8.5, Eos % (Auto) 0.0, Baso % (Auto) 1.0, Absolute Neuts (auto) 2.5, Absolute Lymphs (auto) 1.27, Nucleated RBC % 0 07/29/21 04:38: Sodium 140, Potassium 3.8, Chloride 107, Carbon Dioxide 26.0, Anion Gap 7, BUN 22 H, Creatinine 1.49 H, Estim Creat Clear Calc 41.51, Est GFR (MDRD) Af Amer 59 L, Est GFR (MDRD) Non-Af 48 L, BUN/Creatinine Ratio 14.8, Glucose 152 H, Calcium 8.7, Total Bilirubin 0.80, AST 42 H, ALT 82 H, Alkaline Phosphatase 54, Total Protein 6.1 L, Albumin 3.0 L, Globulin 3.1, Albumin/Globulin Ratio 1.0, TSH 7.12 H 07/29/21 06:27: POC Glucose 159 H Cardiology Labs/Tests 07/28/21 08:05: PT 12.3, INR 1.0, APTT 31.1 07/29/21 04:38: WBC 4.1 L, RBC 4.29 L, Hgb 13.8, Hct 39.7 L, MCV 92.5, MCH 32.2 H, MCHC 34.8, Plt Count 106 L, MPV 9.4, Immature Gran % (Auto) 0.200, Neut % (Auto) 59.5, Lymph % (Auto) 30.8, [place] % (Auto) 8.5, Eos % (Auto) 0.0, Baso % (Auto) 1.0, Absolute Neuts (auto) 2.5, Nucleated RBC % 0 07/29/21 04:38: Sodium 140, Potassium 3.8, Chloride 107, Carbon Dioxide 26.0, Anion Gap 7, BUN 22 H, Creatinine 1.49 H, Est GFR (MDRD) Af Amer 59 L, Est GFR (MDRD) Non-Af 48 L, BUN/Creatinine Ratio 14.8, Glucose 152 H, Calcium 8.7, Total Bilirubin 0.80 Rhythm: Afib ECHO 07/28/21: The estimated ejection fraction is EF 50-55 %. LV systolic function preserved Moerate MR Radiography Diagnostic Testing: Radiology Impression Echocardiogram 07/28/21 10:31 Interpretation Summary The estimated ejection fraction is EF 50-55 %. LV systolic function preserved Moerate MR Ordering Physician: Michelle Serna Referring Physician: Maria Teresa Wells Performed By: Cristal Gant, MALCOLM, RVT Physical Exam Const alert, oriented x3, no apparent distress, average body habitus, healthy appearing and well nourished HEENT normocephalic, head/scalp atraumatic, hearing grossly normal bilaterally, [employer] ears normal, external nose normal, nasal mucous membranes and turbinates normal and moist oral mucous membranes Eyes PERRL, EOMs intact bilaterally, conjunctivae normal and no scleral icterus Neck no lymphadenopathy, supple, no JVD and no carotid bruits Resp normal respiratory effort and clear to auscultation bilaterally Cardio S1 normal heart sound, S2 normal heart sound, no murmurs, no rub, no gallops, no clicks and peripheral pulses 2+ throughout Rate: tachycardic Rhythm: abnormal rhythm irregularly irregular GI normal to inspection, nondistended, normoactive bowel sounds, soft to palpation, non-tender and non-distended Neuro oriented x3, CN's II-XII intact bilaterally, moves all extremities, no focal motor deficits and no sensory deficits noted Assessment & Plan Assessment/Plan (1) Atrial fibrillation with RVR: (2) HTN (hypertension): PLAN: * Pt is anticoagulated with Eliquis, he dose have a CHADVASC2 of 3 * HR not controlled, will add low dose cardizem to help assist with this. He will continue with his metoprolol. This will also help with BP control * since his troponin were negative, feel that we can plan on Op stress * Once he has been anticoagulated for at least 3 weeks will plan on OP DCCV Charges/Coding Visit Charges Inpatient E&M: 07671 Subs Hosp L3 Documented by User: Dr. Janice Jarquin MD 07/29/21 17:04 Lab / Micro Data Result Diagrams: 07/29/21 04:38 07/29/21 04:38 Assessment & Plan Assessment/Plan (1) HTN (hypertension): (2) Stage 3b chronic kidney disease: (3) Hypothyroidism: (4) PAF (paroxysmal atrial fibrillation): PLAN: I saw this patient and examined at bedside along with the midlevel I agree with the current documentation and plan of cardiac care We will continue on rate control for atrial fibrillation in addition to the anticoagulation with Eliquis and plan will be to see as an outpatient with [facility] cardiac team and consider Outpatient DCCV once he is well anticoagulated, 4 to 6 weeks. Patient also to resume care with cardiac team at [facility]
--- NOTE | 2021-07-29 11:04 | PHA.DC.MC ---
Pharmacy Service has performed discharge medication reconciliation and counseling for this patient. The patient was counseled on the following discharge medications and changes in medications for homegoing were reviewed. 1. ELIQUIS 2. LOPRESSOR 3. CARDIZEM The Reason for Use, instructions for use, and potential side effects were reviewed for all new medications. The patient's questions regarding all of their medications were answered. The patient demonstrated some understanding but would benefit from further education and reinforcement. Home Medications cholecalciferol (vitamin D3) 1,250 mcg (50,000 unit) capsule 1,250 mcg PO QWEEK #12 cap 12/20/20 tamsulosin 0.4 mg capsule 0.4 mg PO QHS #90 cap 12/20/20 vit C,E,zinc,Ak-bdjdt-7-lutein-zeaxanthin 250 mg-2.5 mg-0.5 mg capsule 1 cap PO DAILY cap 03/14/21 amlodipine 5 mg tablet 5 mg PO DAILY #90 tab 06/14/21 levothyroxine 100 mcg tablet 100 mcg PO DAILY #90 tab 06/20/21 apixaban [Eliquis] 5 mg PO BID #60 tab 07/29/21 diltiazem HCl 120 mg PO DAILY #30 cap 07/29/21 losartan 100 mg PO DAILY #90 tab 07/29/21 metoprolol tartrate 25 mg PO BID #60 tab 07/29/21 The patient's discharge medication list was reviewed for discrepancies and discrepancies were resolved.
--- NOTE | 2021-07-29 17:58 | NURSING ---
Dr. Serrano called asked nurse to call patient about increased thyroid med to take 125 instead of just 25 script was called to pharmacy. this nurse called patient and informed him of change
== END 2021-07-29 12:26 | disposition home or self-care (01) | DRG 310 ==
LOC: ED 10:16 → PCU 10:55
PROVIDERS: Admitting Provider Internal Medicine; Emergency Provider Emergency Medicine; PCP Internal Medicine; Visit Provider Internal Medicine
DX: I48.0 Paroxysmal atrial fibrillation (principal); I12.9 Hypertensive chronic kidney disease with stage 1 through stage 4 chronic kidney disease, or unspecified chronic kidney disease; N18.32 Chronic kidney disease, stage 3b; E03.9 Hypothyroidism, unspecified; M19.90 Unspecified osteoarthritis, unspecified site; N40.1 Benign prostatic hyperplasia with lower urinary tract symptoms; R39.11 Hesitancy of micturition; Z79.899 Other long term (current) drug therapy; Z79.890 Hormone replacement therapy; Z87.891 Personal history of nicotine dependence
CPT/HCPCS: 36415; 71045; 80048; 80053; 82962; 84443; 84484; 85025; 85610; 85730; 93005; 93306; 99251; 99285; J7030; Q9957; A4216; C8929; G0463

== ENCOUNTER 2021-09-12 10:37 | Day surgery (SDC) | payer MEDICARE, OTHER, SELFPAY ==
[2021-08-24 06:46] VITALS: BMI 33.1
[2021-08-30 11:31] LABS: Anion Gap 5 (5-15); BUN 25 mg/dL (7-18); BUN/Creat Ratio 14.6 RATIO (10-20); Calcium,Total 9.4 mg/dL (8.5-10.1); Chloride 107 mmol/L (98-107); Creatinine, Serum 1.71 mg/dL (0.70-1.30); EST Glomerular Filtration Rate 41 mL/min (>60); Est Glom Filt Rate - Afr Amer 50 mL/min (>60); Estimated Creatinine Clearance 36.17 ml/min; Glucose 154 mg/dL (74-106); Potassium 4.3 mmol/L (3.5-5.1); Sodium Level 136 mmol/L (136-145)
[2021-08-30 11:42] LABS: Free T3 2.5 pg/mL (2.18-3.98); T4 Free Direct 1.15 ng/dL (0.76-1.46); Thyroid Stim Hormone (TSH) 2.81 uIU/mL (0.358-3.74)
--- NOTE | 2021-09-12 11:39 | PCM.OP.BLANK ---
Problems Associated Problem List Diagnoses (1) Persistent atrial fibrillation: Operative Report Date of Procedure: 09/12/21 DC cardioversion. 81-year-old man with a history of atrial fibrillation and mitral regurgitation. The patient has been anticoagulated for the appropriate period of time. Informed consent was obtained. The patient was brought to the noninvasive lab. Patient was seen by Dr. Bolaños of the critical care division. 60 mg of intravenous propofol was administered. Anterior-posterior pads have been applied. The patient was then administered 200 J of DC synchronized cardioversion which did not result in pentecostal of sinus rhythm. The patient was then administered 300 J of synchronized biphasic energy with prompt reversal to sinus rhythm. Patient tolerated the procedure well. Conclusion: Successful DC cardioversion from atrial fibrillation to sinus rhythm. Continue current medical therapy. Follow-up as per office protocol.
--- NOTE | 2021-09-12 14:11 | PCM.OP.PRO ---
Assessment & Plan Assessment/Plan (1) Persistent atrial fibrillation: (2) Essential hypertension: (3) Stage 3b chronic kidney disease: Procedure Report Date of Procedure: 09/12/21 CONSCIOUS SEDATION REPORT BRIEF HISTORY OF PRESENT ILLNESS: The patient is a 81-year-old male who presented to [facility] for an elective outpatient cardioversion due to underlying atrial fibrillation. The patient reports no PO intake since midnight, but is currently therapeutic on anticoagulation. The patient does not have a history of SALO. The patient reports a history of smoking, but denies COPD. The patient denies any recent constitutional symptoms such as fevers, chills, nausea or vomiting. The patient denies previous applicable anesthetic complications. Last EF was 55% PHYSICAL EXAMINATION: VITAL SIGNS: Reviewed and were acceptable. GENERAL: The patient is a male, in no apparent distress, speaking in full sentences. HEENT: Normocephalic, atraumatic. Mucous membranes are moist and pink. Good mouth opening noted. Trachea is midline. Good neck mobility. MP II CHEST: S1, S2 irregularly irregular. No murmurs, rubs or gallops were noted. LUNGS: Clear to auscultation bilaterally without appreciable wheezes, rales or rhonchi. ABDOMEN: Soft, nontender, nondistended. Positive bowel sounds. EXTREMITIES: There is no clubbing, cyanosis or edema. ASA Class: II DESCRIPTION OF PROCEDURE: After confirmation of informed consent, the patient's anesthesia plan was reviewed in detail. Propofol was chosen. Risks and benefits were reviewed and the patient agreed to proceed. At 11:32 AM, the patient was given 40 mg of propofol. The patient required a total of 60 mg of propofol throughout the procedure to achieve appropriate sedation. The patient achieved an appropriate level of sedation and received 2 attempt s synchronized cardioversion, at 200 J and [address] Cheng at the bedside. This was successful in achieving normal sinus rhythm. The patient was monitored until 11:47 AM, at which time the patient reached their baseline mental status and function. The patient tolerated the procedure well. COMPLICATIONS: None ESTIMATED BLOOD LOSS: None RECOMMENDATIONS: Okay to recover in usual fashion. Procedures Pulmonary 9xxxx: [id number] Con Sedation
== END 2021-09-12 13:00 | disposition home or self-care (01) ==
LOC: CLSP 10:37
PROVIDERS: PCP Internal Medicine; Referring Provider Internal Medicine Cardiovascular Disease; Visit Provider Internal Medicine Cardiovascular Disease
DX: I48.19 Other persistent atrial fibrillation (principal); I12.9 Hypertensive chronic kidney disease with stage 1 through stage 4 chronic kidney disease, or unspecified chronic kidney disease; N18.32 Chronic kidney disease, stage 3b; N40.0 Benign prostatic hyperplasia without lower urinary tract symptoms; E03.9 Hypothyroidism, unspecified; H26.9 Unspecified cataract; Z79.899 Other long term (current) drug therapy; Z79.01 Long term (current) use of anticoagulants; Z87.891 Personal history of nicotine dependence
CPT/HCPCS: 36415; 80048; 83036; 84439; 84443; 84481; 92960; 93005; J7040

== ENCOUNTER → 2021-10-07 09:37 | Outpatient (CLI) | payer MEDICARE, OTHER, SELFPAY ==
--- NOTE | 2021-10-07 09:42 | CDU_ITS ---
Reason For Study: Ataxia and lightheaded Rt. Velocities/BP Lt. Velocities/BP Prox CCA 79.9/13.4 cm/sec. Prox CCA 87.6/18.8 cm/sec. Mid CCA 76/17.3 cm/sec. Mid CCA 88.8/16.3 cm/sec. Dist CCA 60.4/14.7 cm/sec. Dist CCA 64.2/15.1 cm/sec. Prox ICA 58.6/15.7 cm/sec. Prox ICA 77.7/26.2 cm/sec. Mid ICA 67.3/20.1 cm/sec. Mid ICA 75.3/23.7 cm/sec. Dist ICA 81.6/26.7 cm/sec. Dist ICA 58.1/20 cm/sec. Rt. ICA/CCA = 1.1. Lt. ICA/CCA = 0.9. Prox ECA 76.1/9.1 cm/sec. Prox ECA 107.2/12.6 cm/sec. Rt. Vert. 29.9/9.9 cm/sec. Lt. Vert. 36/12.6 cm/sec. Right Extracranial There is intimal thickening but no significant atherosclerotic plaque noted in the right common carotid artery. There is heterogeneous, irregular atherosclerotic plaque noted in the right internal carotid artery. There is intimal thickening but no significant atherosclerotic plaque noted in the right external carotid artery. Antegrade flow is noted in the right vertebral artery. Left Extracranial There is intimal thickening but no significant atherosclerotic plaque noted in the left common carotid artery. There is intimal thickening but no significant atherosclerotic plaque noted in the left internal carotid artery. There is intimal thickening but no significant atherosclerotic plaque noted in the left external carotid artery. Antegrade flow is noted in the left vertebral artery. Procedure Carotid Duplex [id number]. This is a Carotid Duplex examination using B-mode, color flow and specral Doppler. Exam performed in department. VL/Carotid Duplex Ultrasound Interpretation Summary Minimal irregular plaque at the proximal right internal carotid artery with les s than 50% stenosis Less than 50% stenosis right external carotid artery Intimal thickening at the proximal left internal carotid artery with less than 50% stenosis Less than 50% stenosis left external carotid artery Patent and antegrade vertebrals bilaterally Ordering Physician: Jerica Alfaro Referring Physician: Maria Teresa Wells Performed By: Toyin Narvaez RVT
== END ==
PROVIDERS: PCP Internal Medicine; Referring Provider Physician Assistant Medical; Visit Provider Physician Assistant Medical
DX: R27.0 Ataxia, unspecified (principal)
CPT/HCPCS: 93880

== ENCOUNTER 2022-01-10 08:18 | Outpatient (CLI) | payer MEDICARE, OTHER, SELFPAY ==
[2022-01-10 12:05] LABS: Absolute Lymphocyte Count 0.99 X10^3/uL (0.83-4.51); Absolute Neutrophil Count 3.2 X10^3/uL (2.0-7.7); Basophil# 0.05 X10^3/uL; Basophil% 1.1 % (0-1); Hemoglobin 14.7 g/dL (13.0-16.5); Lymphocyte # 0.99 X10^3/ul (0.83-4.51); Lymphocyte % 21.8 % (19-41); Mean Corp Hgb Conc 33.4 g/dL (32-36); Mean Corpuscular Hgb 31.3 pg (27.0-32.0); Mean Corpuscular Volume 93.6 fL (80-94); Mean Platelet Vol. 9.6 fl (6.2-12.0); Monocyte# 0.34 X10^3/uL; Monocyte% 7.5 % (0-10); NRBC Flagged by Analyzer 0 % (0-5); Neutrophil # 3.15 X10^3/uL (2.7-7.7); Neutrophil % 69.4 % (47-70); Platelet Count 113 K/mm3 (150-450); RBC Distribution Width CV 13.2 % (11.6-14.6); RBC Distribution Width SD 44.9 fl (35.1-43.9); White Blood Count 4.5 K/mm3 (4.4-11.0)
[2022-01-10 12:30] LABS: Vitamin D,25 Hydroxy 70.3 ng/mL
[2022-01-10 12:43] LABS: ALB/GLOB Ratio 1.2 RATIO (0.9-2.4); AST(SGOT) 47 U/L (15-37); Alanine Aminotransfer ALT/SGPT 94 U/L (16-61); Albumin, Serum 3.9 g/dL (3.2-5.0); Alkaline Phosphatase 73 U/L (45-117); Anion Gap 2 (5-15); BUN 19 mg/dL (7-18); BUN/Creat Ratio 12.8 RATIO (10-20); Calcium,Total 9.8 mg/dL (8.5-10.1); Chloride 104 mmol/L (98-107); Cholesterol 205 mg/dL (200); Creatinine, Serum 1.48 mg/dL (0.70-1.30); EST Glomerular Filtration Rate 49 mL/min (>60); Est Glom Filt Rate - Afr Amer 59 mL/min (>60); Free T3 2.8 pg/mL (2.18-3.98); Globulin 3.3 g/dL (2.2-4.2); Glucose 168 mg/dL (74-106); High Density Lipoprotein 47 mg/dL; PSA,Total - Annual Screen 3.97 ng/mL (0.00-4.00); Potassium 4.4 mmol/L (3.5-5.1); Protein, Total 7.2 g/dL (6.4-8.2); Sodium Level 138 mmol/L (136-145); T4 Free Direct 1.16 ng/dL (0.76-1.46); Thyroid Stim Hormone (TSH) 2.84 uIU/mL (0.358-3.74); Triglycerides 180 mg/dL; Very Low Density Lipoprotein 36 mg/dL (5-40)
== END 2022-01-10 23:59 | disposition home or self-care (01) ==
LOC: BIMLAB 08:20
PROVIDERS: PCP Internal Medicine; Referring Provider Internal Medicine; Visit Provider Internal Medicine
DX: I48.91 Unspecified atrial fibrillation (principal); N18.32 Chronic kidney disease, stage 3b; H81.10 Benign paroxysmal vertigo, unspecified ear; I12.9 Hypertensive chronic kidney disease with stage 1 through stage 4 chronic kidney disease, or unspecified chronic kidney disease; E55.9 Vitamin D deficiency, unspecified; Z12.5 Encounter for screening for malignant neoplasm of prostate
CPT/HCPCS: 36415; 80053; 80061; 82306; 84153; 84439; 84443; 84481; 85025; G0103

== ENCOUNTER → 2022-02-23 | Outpatient (CLI) | payer MEDICARE, OTHER, SELFPAY ==
--- NOTE | 2022-02-23 06:41 | MRI_ITS ---
STUDY: MRI BRAIN WITH AND WITHOUT CONTRAST (ATTENTION INTERNAL AUDITORY CANALS - I.A.C.''s) REASON FOR EXAM: Male, 81 years old. ACOUSTIC NEUROMA, loss of hearing TECHNIQUE: Standardized multiplanar fat and water weighted pulse sequences were obtained. IV 20cc dotarem was administered for the contrast portion of the examination. COMPARISON: None. FINDINGS: Normal bilateral temporal bones. Normal bilateral internal auditory canals. There is no demonstrated intracanalicular or cisternal vestibular schwannoma (acoustic neuroma). There is no enhancement of the bilateral VIIth or VIIIth cranial nerves. Normal bilateral cochlea, vestibules and semicircular canals. There is mild cerebral volume loss with widening of the extra-axial spaces and ventricular dilatation. There are a limited number of small white matter hyperintensities, distributed throughout the deep white matter tracts of the cerebral hemispheres, consistent with mild chronic white matter ischemic changes. There is no evidence for recent intracranial ischemia or other cause of cytotoxic edema on diffusion weighted imaging (DWI). Normal bilateral basal ganglia. Normal thalami. Normal flow voids within the major intracranial circulation suggesting patency by spin echo criteria. Normal venous enhancement. There is no enhancing intra-axial or extra-axial abnormality. There is no extra-axial fluid accumulation. Normal sella turcica, pituitary gland, infundibular stalk, optic chiasm and hypothalamus. Normal tectal plate and pineal gland. Normal midbrain, sarahi and medulla. Normal cerebellum. Normal basal cisterns. There are bilateral ocular lens implants with otherwise normal intraorbital contents. Normal visualized paranasal sinuses. Normal calvarium and skull base. Normal visualized soft tissue structures. Normal visualized upper cervical spine. MRI/Brain W/WO Contrast IMPRESSION: Normal unenhanced and enhanced MRI of the bilateral internal auditory canals (I.A.C''s). Electronically Signed: Enrico Cespedes MD at 5:33 EDT ,
[2022-02-23 06:50] LABS: CREATININE FINGERSTICK 1.2 mg/dL (0.70-1.30); EGFR FINGERSTICK > 60.0000 mL/min (>60)
== END | disposition home or self-care (01) ==
LOC: MRI 06:22
PROVIDERS: PCP Internal Medicine; Referring Provider Otolaryngology Otolaryngology/Facial Plastic Surgery; Visit Provider Otolaryngology Otolaryngology/Facial Plastic Surgery
DX: D33.3 Benign neoplasm of cranial nerves (principal)
CPT/HCPCS: 70553; A9575

== ENCOUNTER → 2022-03-21 | Outpatient (CLI) | payer MEDICARE, OTHER, SELFPAY ==
--- NOTE | 2022-03-21 14:10 | RAD_ITS ---
EXAM: XR LEFT FOOT, 2 VIEWS CLINICAL INDICATION: Foot pain left, foot trauma TECHNIQUE: Frontal and lateral views of the left foot. This report was created using [employer] report generation technology. COMPARISON: None. FINDINGS: BONES/JOINTS: Unremarkable. No acute fracture. No subluxation. Normal alignment. Preservation of the joint space. No sclerotic or destructive changes observed. SOFT TISSUES: Mild soft tissue swelling around the foot. No radiopaque foreign body. VASCULATURE: There are atherosclerotic vascular calcifications. RAD/Foot 2 Views IMPRESSION: Mild soft tissue swelling around the foot. Electronically Signed: Andrew Schroeder MD at 17:22 EDT ,
--- NOTE | 2022-03-21 14:10 | RAD_ITS ---
STUDY: XR Ankle Min 3 Views REASON FOR EXAM: Male, 81 years old. ANKLE PAIN TECHNIQUE: XR Ankle Min 3 Views LEFT COMPARISON: None. FINDINGS: Normal visualized distal tibia and fibula. Normal medial and lateral malleoli. Normal tibiotalar articulation and ankle mortise. There are atherosclerotic vascular calcifications. The visualized subtalar, talonavicular, calcaneocuboid and tarsal articulations are normal. There is a plantar calcaneal spur. There is soft tissue swelling around the ankle. RAD/Ankle min 3 Views IMPRESSION: There is soft tissue swelling. Electronically Signed: Andrew Schroeder MD at 17:22 EDT ,
--- NOTE | 2022-03-21 14:24 | VDLE_ITS ---
Reason For Study: Swelling Procedure LEFT This is a venous duplex using B-mode, color GSV is normal. flow and spectral Doppler. CFV is compressible, spontaneous, phasic, Exam performed in department. competent, and demonstrates normal A preliminary report was called and/or faxed augmentation. to Priscilla. FV is compressible, spontaneous, phasic, competent and demonstrates normal augmentation. POP V is compressible, spontaneous, phasic, competent and demonstrates normal augmentation. T/P Trunk is compressible. PTV is compressible. LT PerV is compressible. Nonvascularized structure noted in the left popliteal fossa measuring 0.54 x 1.42 x 1.41 cm. VL/Venous Duplex US, Unilateral Interpretation Summary There is no evidence of left lower extremity deep vein thrombosis. Left great s aphenous vein appears patent and compressible segmentally. Left popliteal space [id number] centim eter none vascularized structure. Possible small Carpio's cyst. Clinical correlation would be appropriate. Ordering Physician: Maria Teresa Wells Referring Physician: Maria Teresa Wells M.D. Performed By: Toyin Narvaez RVT
== END | disposition home or self-care (01) ==
PROVIDERS: PCP Internal Medicine; Visit Provider Internal Medicine
DX: M79.672 Pain in left foot (principal); M25.572 Pain in left ankle and joints of left foot
CPT/HCPCS: 73610; 73620; 93971

== ENCOUNTER → 2022-07-06 | Outpatient (CLI) | payer MEDICARE, OTHER, SELFPAY ==
[2022-07-06 08:27] LABS: Absolute Lymphocyte Count 0.79 X10^3/uL (0.83-4.51); Absolute Neutrophil Count 2.3 X10^3/uL (2.0-7.7); Basophil# 0.03 X10^3/uL; Basophil% 0.9 % (0-1); Hematocrit 39.5 % (40-54); Hemoglobin 14.4 g/dL (13.0-16.5); Lymphocyte # 0.79 X10^3/ul (0.83-4.51); Lymphocyte % 23.4 % (19-41); Mean Corp Hgb Conc 36.5 g/dL (32-36); Mean Corpuscular Hgb 33.6 pg (27.0-32.0); Mean Corpuscular Volume 92.1 fL (80-94); Mean Platelet Vol. 8.7 fl (6.2-12.0); Monocyte# 0.28 X10^3/uL; Monocyte% 8.3 % (0-10); NRBC Flagged by Analyzer 0 % (0-5); Neutrophil # 2.26 X10^3/uL (2.7-7.7); Neutrophil % 67.1 % (47-70); Platelet Count 107 K/mm3 (150-450); RBC Distribution Width CV 13.1 % (11.6-14.6); RBC Distribution Width SD 43.9 fl (35.1-43.9); Red Blood Count 4.29 M/mm3 (4.6-6.2); White Blood Count 3.4 K/mm3 (4.4-11.0)
[2022-07-06 08:52] LABS: Vitamin D,25 Hydroxy 76.6 ng/mL
[2022-07-06 09:09] LABS: ALB/GLOB Ratio 1.2 RATIO (0.9-2.4); AST(SGOT) 44 U/L (15-37); Alanine Aminotransfer ALT/SGPT 73 U/L (16-61); Albumin, Serum 3.7 g/dL (3.2-5.0); Alkaline Phosphatase 68 U/L (45-117); Anion Gap 6 (5-15); BUN 19 mg/dL (7-18); BUN/Creat Ratio 13.5 RATIO (10-20); Calcium,Total 9.7 mg/dL (8.5-10.1); Chloride 105 mmol/L (98-107); Creatinine, Serum 1.41 mg/dL (0.70-1.30); EST Glomerular Filtration Rate 51 mL/min (>60); Est Glom Filt Rate - Afr Amer 62 mL/min (>60); Free T3 2.6 pg/mL (2.18-3.98); Globulin 3.2 g/dL (2.2-4.2); Glucose 152 mg/dL (74-106); Potassium 3.9 mmol/L (3.5-5.1); Protein, Total 6.9 g/dL (6.4-8.2); Sodium Level 142 mmol/L (136-145); Thyroid Stim Hormone (TSH) 2.68 uIU/mL (0.358-3.74)
== END | disposition home or self-care (01) ==
LOC: LAB 08:04
PROVIDERS: PCP Internal Medicine; Visit Provider Internal Medicine
DX: I12.9 Hypertensive chronic kidney disease with stage 1 through stage 4 chronic kidney disease, or unspecified chronic kidney disease (principal); I48.0 Paroxysmal atrial fibrillation; N18.32 Chronic kidney disease, stage 3b; E03.9 Hypothyroidism, unspecified; N40.1 Benign prostatic hyperplasia with lower urinary tract symptoms; E55.9 Vitamin D deficiency, unspecified; Z79.01 Long term (current) use of anticoagulants
CPT/HCPCS: 36415; 80053; 82306; 84443; 84481; 85025

== ENCOUNTER → 2023-01-15 | Outpatient (CLI) | payer MEDICARE, OTHER, SELFPAY ==
[2023-01-15 12:06] LABS: Absolute Lymphocyte Count 0.85 X10^3/uL (0.83-4.51); Absolute Neutrophil Count 2.9 X10^3/uL (2.0-7.7); Basophil# 0.04 X10^3/uL; Hematocrit 43.4 % (40-54); Hemoglobin 14.7 g/dL (13.0-16.5); Lymphocyte # 0.85 X10^3/ul (0.83-4.51); Mean Corp Hgb Conc 33.9 g/dL (32-36); Mean Corpuscular Hgb 32.1 pg (27.0-32.0); Mean Corpuscular Volume 94.8 fL (80-94); Mean Platelet Vol. 9.8 fl (6.2-12.0); Monocyte# 0.28 X10^3/uL; Monocyte% 6.9 % (0-10); NRBC Flagged by Analyzer 0 % (0-5); Neutrophil # 2.86 X10^3/uL (2.7-7.7); Neutrophil % 70.9 % (47-70); Platelet Count 120 K/mm3 (150-450); RBC Distribution Width CV 12.7 % (11.6-14.6); RBC Distribution Width SD 43.8 fl (35.1-43.9); Red Blood Count 4.58 M/mm3 (4.6-6.2)
[2023-01-15 12:17] LABS: Vitamin D,25 Hydroxy 70.8 ng/mL
[2023-01-15 12:58] LABS: ALB/GLOB Ratio 1.1 RATIO (0.9-2.4); AST(SGOT) 41 U/L (15-37); Alanine Aminotransfer ALT/SGPT 80 U/L (16-61); Albumin, Serum 3.9 g/dL (3.2-5.0); Alkaline Phosphatase 88 U/L (45-117); Anion Gap 8 (5-15); BUN 14 mg/dL (7-18); BUN/Creat Ratio 9.9 RATIO (10-20); Calcium,Total 9.6 mg/dL (8.5-10.1); Chloride 104 mmol/L (98-107); Cholesterol 210 mg/dL (200); Creatinine, Serum 1.42 mg/dL (0.70-1.30); EST Glomerular Filtration Rate 51 mL/min (>60); Est Glom Filt Rate - Afr Amer 62 mL/min (>60); Free T3 2.8 pg/mL (2.18-3.98); Globulin 3.4 g/dL (2.2-4.2); Glucose 192 mg/dL (74-106); High Density Lipoprotein 43 mg/dL; Potassium 4.3 mmol/L (3.5-5.1); Protein, Total 7.3 g/dL (6.4-8.2); Sodium Level 140 mmol/L (136-145); Thyroid Stim Hormone (TSH) 4.49 uIU/mL (0.358-3.74); Triglycerides 239 mg/dL; Very Low Density Lipoprotein 48 mg/dL (5-40)
== END | disposition home or self-care (01) ==
LOC: BIMLAB 08:09
PROVIDERS: PCP Internal Medicine; Referring Provider Internal Medicine; Visit Provider Internal Medicine
DX: I12.9 Hypertensive chronic kidney disease with stage 1 through stage 4 chronic kidney disease, or unspecified chronic kidney disease (principal); I48.0 Paroxysmal atrial fibrillation; N18.32 Chronic kidney disease, stage 3b; N40.1 Benign prostatic hyperplasia with lower urinary tract symptoms; E55.9 Vitamin D deficiency, unspecified; Z79.01 Long term (current) use of anticoagulants; Z12.5 Encounter for screening for malignant neoplasm of prostate
CPT/HCPCS: 36415; 80053; 80061; 82306; 84153; 84439; 84443; 84481; 85025; G0103

== ENCOUNTER → 2023-03-16 | Outpatient (CLI) | payer MEDICARE, OTHER, SELFPAY ==
[2023-03-16 12:56] LABS: Free T3 2.4 pg/mL (2.18-3.98); T4 Free Direct 1.08 ng/dL (0.76-1.46); Thyroid Stim Hormone (TSH) 3.12 uIU/mL (0.358-3.74)
== END | disposition home or self-care (01) ==
LOC: BIMLAB 08:18
PROVIDERS: PCP Internal Medicine; Referring Provider Internal Medicine; Visit Provider Internal Medicine
DX: E03.9 Hypothyroidism, unspecified (principal)
CPT/HCPCS: 36415; 84439; 84443; 84481

== ENCOUNTER → 2023-06-01 | Outpatient (CLI) | payer MEDICARE, OTHER, SELFPAY ==
--- NOTE | 2023-06-01 12:00 | RAD_ITS ---
STUDY: X-RAY CHEST REASON FOR EXAM: Male, 83 years old. Evaluate for cardioversion. TECHNIQUE: Frontal and lateral views of the chest. COMPARISON: None. FINDINGS: The lungs are clear and expanded. There is no demonstrated pleural abnormality. Borderline cardiomegaly. Normal mediastinum and alfonso. Normal visualized pulmonary arteries. Aortic tortuosity with calcification. Normal visualized thoracic spine. Normal visualized ribs, clavicles, and shoulders. No abnormality of the visualized soft tissue structures of the upper abdomen. RAD/Chest PA and Lateral IMPRESSION: No interval change and no acute or active cardiopulmonary disease Electronically Signed: Zack Arambula MD at 12:48 EDT ,
[2023-06-01 12:48] LABS: Absolute Lymphocyte Count 1.01 X10^3/uL (0.83-4.51); Absolute Neutrophil Count 4.1 X10^3/uL (2.0-7.7); Basophil# 0.07 X10^3/uL; Basophil% 1.2 % (0-1); Hemoglobin 15.2 g/dL (13.0-16.5); Lymphocyte # 1.01 X10^3/ul (0.83-4.51); Lymphocyte % 17.9 % (19-41); Mean Corp Hgb Conc 34.5 g/dL (32-36); Mean Corpuscular Hgb 32.8 pg (27.0-32.0); Mean Corpuscular Volume 94.8 fL (80-94); Mean Platelet Vol. 9.1 fl (6.2-12.0); Monocyte% 7.1 % (0-10); NRBC Flagged by Analyzer 0 % (0-5); Neutrophil # 4.13 X10^3/uL (2.7-7.7); Neutrophil % 73.1 % (47-70); Platelet Count 133 K/mm3 (150-450); RBC Distribution Width CV 13.4 % (11.6-14.6); RBC Distribution Width SD 46.5 fl (35.1-43.9); Red Blood Count 4.64 M/mm3 (4.6-6.2); White Blood Count 5.7 K/mm3 (4.4-11.0)
[2023-06-01 13:10] LABS: BNP,B-Type NATRIURETIC PEPTIDE 115.4 pg/mL (0-100)
[2023-06-01 13:20] LABS: Anion Gap 3 (5-15); BUN 19 mg/dL (7-18); BUN/Creat Ratio 13.2 RATIO (10-20); Calcium,Total 9.4 mg/dL (8.5-10.1); Chloride 107 mmol/L (98-107); Creatinine, Serum 1.44 mg/dL (0.70-1.30); EST Glomerular Filtration Rate 50 mL/min (>60); Est Glom Filt Rate - Afr Amer 61 mL/min (>60); Glucose 172 mg/dL (74-106); Sodium Level 139 mmol/L (136-145); Thyroid Stim Hormone (TSH) 2.56 uIU/mL (0.358-3.74)
== END | disposition home or self-care (01) ==
LOC: RAD 11:46
PROVIDERS: PCP Internal Medicine; Referring Provider Internal Medicine Cardiovascular Disease; Visit Provider Internal Medicine Cardiovascular Disease
DX: R06.02 Shortness of breath (principal); I48.0 Paroxysmal atrial fibrillation; D69.6 Thrombocytopenia, unspecified; N18.32 Chronic kidney disease, stage 3b; E03.9 Hypothyroidism, unspecified
CPT/HCPCS: 36415; 71046; 80048; 83880; 84443; 85025

== ENCOUNTER → 2023-06-06 | Outpatient (CLI) | payer MEDICARE, OTHER, SELFPAY ==
--- NOTE | 2023-06-06 10:46 | ECHOD_ITS ---
Reason For Study: AFIB Procedure This was a 2D Doppler, Color Flow transthoracic echocardiogram. Exam performed in department. Left Ventricle Normal LV size. Left ventricular systolic function is normal. The estimated ejection fraction is 55 %. No regional wall motion abnormalities noted. Right Ventricle Normal RV size. Normal systolic function. Atria Normal left atrium. Normal right atrium. Mitral Valve There is mild to moderate mitral annular calcification. Mild (1+) eccentric mitral valve insufficiency. Tricuspid Valve Normal tricuspid valve. Mild tricuspid valve insufficiency. Pulmonary artery systolic pressure is 34 mmHg. Aortic Valve The aortic valve is not well visualized. Pulmonic Valve The pulmonic valve is not well visualized. Great Vessels Normal aortic root. Pericardium/Pleural No pericardial effusion. MMode/2D Measurements & Calculations RVDd: 4.0 cm Ao root diam: 3.4 cm LAV(MOD-bp): 99.9 ml LAV(MOD-bp) Indexed: 46.0 ml/m2 LAV(MOD-sp2): 75.4 ml LAV(MOD-sp4): 106.1 ml SV(MOD-sp4): 38.6 ml SV(sp4-el): 40.9 ml LVAd ap4: 26.6 cm2 LVLd ap4: 7.8 cm EDV(MOD-sp4): 77.2 ml EDV(sp4-el): 76.6 ml LVAs ap4: 17.4 cm2 LVLs ap4: 7.2 cm ESV(MOD-sp4): 38.5 ml ESV(sp4-el): 35.8 ml EF(MOD-sp4): 50.1 % EF(sp4-el): 53.3 % LA A4 area: 30.5 cm2 LA dimension(2D): 3.9 cm RA A4 area: 19.0 cm2 Doppler Measurements & Calculations MV E max jack: 85.7 cm/sec MV V2 max: 77.9 cm/sec Ao V2 max: 108.7 cm/sec MV max P.7 mmHg Ao max P.8 mmHg MV V2 mean: 50.8 cm/sec Ao V2 mean: 84.7 cm/sec MV mean P.3 mmHg Ao mean P.2 mmHg MV V2 VTI: 14.3 cm Ao V2 VTI: 20.5 cm AV (velocity ratio): 0.81 LV V1 max: 81.1 cm/sec MR max jack: 402.5 cm/sec PA V2 max: 67.5 cm/sec LV V1 max P.6 mmHg MR max P.8 mmHg PA V2 mean: 50.9 cm/sec LV V1 mean P.3 mmHg LV V1 mean: 53.1 cm/sec LV V1 VTI: 16.7 cm TR max jack: 273.8 cm/sec TR max P.0 mmHg ECHO/Echo Complete Interpretation Summary Normal LV size. Left ventricular systolic function is normal. The estimated ejection fraction is 55 %. Ordering Physician: Danilo Cheng Referring Physician: Hunter Golden Performed By: Eliz Pendleton RCS
== END | disposition home or self-care (01) ==
LOC: CVS 10:46
PROVIDERS: PCP Internal Medicine; Referring Provider Internal Medicine Cardiovascular Disease; Visit Provider Internal Medicine Cardiovascular Disease
DX: I48.0 Paroxysmal atrial fibrillation (principal)
CPT/HCPCS: 93306

== ENCOUNTER → 2023-06-29 | Outpatient (CLI) | payer MEDICARE, OTHER, SELFPAY ==
[2023-06-29 17:16] LABS: Anion Gap 6 (5-15); BUN 20 mg/dL (7-18); Calcium,Total 9.1 mg/dL (8.5-10.1); Chloride 107 mmol/L (98-107); Creatinine, Serum 1.43 mg/dL (0.70-1.30); EST Glomerular Filtration Rate 50 mL/min (>60); Est Glom Filt Rate - Afr Amer 61 mL/min (>60); Glucose 152 mg/dL (74-106); Potassium 3.9 mmol/L (3.5-5.1); Sodium Level 140 mmol/L (136-145)
== END | disposition home or self-care (01) ==
LOC: LAB 14:12
PROVIDERS: PCP Internal Medicine; Referring Provider Nurse Practitioner Family; Visit Provider Nurse Practitioner Family
DX: M79.672 Pain in left foot (principal); I48.0 Paroxysmal atrial fibrillation; I10 Essential (primary) hypertension
CPT/HCPCS: 36415; 80048

== ENCOUNTER 2023-07-26 10:15 | Day surgery (SDC) | payer MEDICARE, OTHER, SELFPAY ==
[2023-07-25 09:12] VITALS: BMI 33.4
--- NOTE | 2023-07-26 13:51 | PCM.OP.PRO ---
Procedure Report Date of Procedure: 07/26/23 CONSCIOUS SEDATION REPORT BRIEF HISTORY OF PRESENT ILLNESS: The patient is an 83-year-old male who presented to [facility] for an elective outpatient cardioversion due to underlying atrial fibrillation. The patient reports no PO intake since midnight, but is currently therapeutic on anticoagulation. The patient does not have a history of SALO, COPD or asthma. The patient reports a history of chronic kidney disease. The patient denies any recent constitutional symptoms such as fevers, chills, nausea or vomiting. The patient denies previous applicable anesthetic complications. Patient's last known ejection fraction was 55%. Patient did take Eliquis on the day of the procedure. PHYSICAL EXAMINATION: VITAL SIGNS: Reviewed and were acceptable. GENERAL: The patient is a male, in no apparent distress, speaking in full sentences. HEENT: Normocephalic, atraumatic. Mucous membranes are moist and pink. Good mouth opening noted. Trachea is midline. Good neck mobility. MP IV CHEST: S1, S2 irregularly irregular. No murmurs, rubs or gallops were noted. LUNGS: Clear to auscultation bilaterally without appreciable wheezes, rales or rhonchi. ABDOMEN: Soft, nontender, nondistended. Positive bowel sounds. EXTREMITIES: There is no clubbing, cyanosis or edema. ASA Class: II DESCRIPTION OF PROCEDURE: After confirmation of informed consent, the patient's anesthesia plan was reviewed in detail. Propofol was chosen. Risks and benefits were reviewed and the patient agreed to proceed. At 1:10 PM, the patient was given 40 mg of propofol. The patient achieved an appropriate level of sedation and received 1 attempt synchronized cardioversion, at [address] Cheng at the bedside. This was successful in achieving normal sinus rhythm. The patient was monitored until 1:24 PM, at which time the patient reached their baseline mental status and function. The patient tolerated the procedure well. COMPLICATIONS: None ESTIMATED BLOOD LOSS: None RECOMMENDATIONS: Okay to recover in usual fashion. Procedures Pulmonary 9xxxx: [id number] Con Sedation
--- NOTE | 2023-07-26 14:50 | PCM.OP.PRO ---
Procedure Report Date of Procedure: 07/26/23 DC cardioversion. 83-year-old man with a history of persistent atrial fibrillation. The patient has been on continuous anticoagulation and was brought to the cardiac catheterization lab in the postabsorptive nonsedated state. Patient was seen by Dr. Bolaños of the critical care division. Informed consent was obtained. Anterior-posterior pads were applied. 300 J of synchronized DC cardioversion biphasic energy were applied with prompt reversal to sinus rhythm. Patient tolerated the procedure well. Conclusion: Continue current medications. Follow-up as per office protocol.
== END 2023-07-26 14:27 | disposition home or self-care (01) ==
LOC: CLSP 10:16
PROVIDERS: PCP Internal Medicine; Referring Provider Internal Medicine Cardiovascular Disease; Visit Provider Internal Medicine Cardiovascular Disease
DX: I48.0 Paroxysmal atrial fibrillation (principal); N18.32 Chronic kidney disease, stage 3b; I12.9 Hypertensive chronic kidney disease with stage 1 through stage 4 chronic kidney disease, or unspecified chronic kidney disease; I34.0 Nonrheumatic mitral (valve) insufficiency; Z87.891 Personal history of nicotine dependence; Z79.899 Other long term (current) drug therapy; Z79.01 Long term (current) use of anticoagulants
CPT/HCPCS: 92960; 93005; J7040

== ENCOUNTER → 2024-02-12 | Outpatient (CLI) | payer MEDICARE, OTHER, SELFPAY ==
[2024-02-12 12:02] LABS: Absolute Lymphocyte Count 0.96 X10^3/uL (0.83-4.51); Absolute Neutrophil Count 2.6 X10^3/uL (2.0-7.7); Basophil# 0.05 X10^3/uL; Basophil% 1.3 % (0-1); Eosinophil# 0.01 X10^3/uL; Eosinophils% 0.3 % (0-5); Hemoglobin 14.1 g/dL (13.0-16.5); Lymphocyte # 0.96 X10^3/ul (0.83-4.51); Lymphocyte % 24.6 % (19-41); Mean Corp Hgb Conc 34.4 g/dL (32-36); Mean Corpuscular Hgb 31.8 pg (27.0-32.0); Mean Corpuscular Volume 92.6 fL (80-94); Mean Platelet Vol. 9.5 fl (6.2-12.0); Monocyte# 0.29 X10^3/uL; Monocyte% 7.4 % (0-10); NRBC Flagged by Analyzer 0 % (0-5); Neutrophil # 2.59 X10^3/uL (2.7-7.7); Neutrophil % 66.1 % (47-70); Platelet Count 116 K/mm3 (150-450); RBC Distribution Width CV 12.8 % (11.6-14.6); RBC Distribution Width SD 43.1 fl (35.1-43.9); Red Blood Count 4.43 M/mm3 (4.6-6.2); White Blood Count 3.9 K/mm3 (4.4-11.0)
[2024-02-12 12:52] LABS: Vitamin D,25 Hydroxy 81.6 ng/mL
[2024-02-12 13:04] LABS: ALB/GLOB Ratio 1.2 RATIO (0.9-2.4); AST(SGOT) 41 U/L (15-37); Alanine Aminotransfer ALT/SGPT 67 U/L (16-61); Albumin, Serum 3.5 g/dL (3.2-5.0); Alkaline Phosphatase 57 U/L (45-117); Anion Gap 4 (5-15); BUN 22 mg/dL (7-18); BUN/Creat Ratio 14.1 RATIO (10-20); Calcium,Total 9.2 mg/dL (8.5-10.1); Chloride 104 mmol/L (98-107); Cholesterol 198 mg/dL (200); Creatinine, Serum 1.56 mg/dL (0.70-1.30); EST Glomerular Filtration Rate 46 mL/min (>60); Est Glom Filt Rate - Afr Amer 55 mL/min (>60); Free T3 2.2 pg/mL (2.18-3.98); Globulin 2.9 g/dL (2.2-4.2); Glucose 168 mg/dL (74-106); High Density Lipoprotein 38 mg/dL; Magnesium 2.3 mg/dL (1.6-2.6); PSA,Total - Annual Screen 2.03 ng/mL (0.00-4.00); Protein, Total 6.4 g/dL (6.4-8.2); Sodium Level 136 mmol/L (136-145); T4 Free Direct 1.08 ng/dL (0.76-1.46); Thyroid Stim Hormone (TSH) 6.07 uIU/mL (0.358-3.74); Triglycerides 171 mg/dL; Very Low Density Lipoprotein 34 mg/dL (5-40)
[2024-02-13 09:32] LABS: Hemoglobin A1c 6.4 % (3.8-5.6)
== END | disposition home or self-care (01) ==
LOC: BIMLAB 08:07
PROVIDERS: PCP Internal Medicine; Visit Provider Internal Medicine
DX: I12.9 Hypertensive chronic kidney disease with stage 1 through stage 4 chronic kidney disease, or unspecified chronic kidney disease (principal); N18.32 Chronic kidney disease, stage 3b; N40.1 Benign prostatic hyperplasia with lower urinary tract symptoms; E03.9 Hypothyroidism, unspecified; R73.9 Hyperglycemia, unspecified; Z79.01 Long term (current) use of anticoagulants; Z12.5 Encounter for screening for malignant neoplasm of prostate
CPT/HCPCS: 36415; 80053; 80061; 82306; 83036; 83735; 84153; 84439; 84443; 84481; 85025; G0103

== ENCOUNTER → 2024-06-03 | Outpatient (CLI) | payer MEDICARE, OTHER, SELFPAY ==
[2024-06-03 12:25] LABS: AST(SGOT) 31 U/L (15-37); Alanine Aminotransfer ALT/SGPT 54 U/L (16-61); Albumin, Serum 3.3 g/dL (3.2-5.0); Alkaline Phosphatase 63 U/L (45-117); Anion Gap 6 (5-15); BUN 20 mg/dL (7-18); BUN/Creat Ratio 11.7 RATIO (10-20); Calcium,Total 9.2 mg/dL (8.5-10.1); Chloride 107 mmol/L (98-107); Creatinine, Serum 1.71 mg/dL (0.70-1.30); EST Glomerular Filtration Rate 41 mL/min (>60); Est Glom Filt Rate - Afr Amer 50 mL/min (>60); Free T3 2.5 pg/mL (2.18-3.98); Globulin 3.4 g/dL (2.2-4.2); Glucose 151 mg/dL (74-106); Potassium 4.1 mmol/L (3.5-5.1); Protein, Total 6.7 g/dL (6.4-8.2); Sodium Level 141 mmol/L (136-145); T4 Free Direct 1.03 ng/dL (0.76-1.46)
[2024-06-03 12:42] LABS: Hemoglobin A1c 5.9 % (3.8-5.6)
[2024-06-04 10:09] LABS: Insulin Level 9.9 uIU/mL (2.6-24.9)
== END | disposition home or self-care (01) ==
LOC: BIMLAB 08:03
PROVIDERS: PCP Internal Medicine; Referring Provider Internal Medicine; Visit Provider Internal Medicine
DX: R73.9 Hyperglycemia, unspecified (principal); I10 Essential (primary) hypertension; E88.819 Insulin resistance, unspecified; E03.9 Hypothyroidism, unspecified
CPT/HCPCS: 36415; 80053; 83036; 83525; 84439; 84443; 84481

== ENCOUNTER → 2024-10-07 | Outpatient (CLI) | payer MEDICARE, OTHER, SELFPAY ==
--- NOTE | 2024-10-07 09:57 | RAD_ITS ---
HISTORY: heart cath. TECHNIQUE: XR Chest 2 Views. COMPARISON: 06/01/2023. FINDINGS: CARDIOMEDIASTINAL BORDERS: Cardiac silhouette within normal limits in size. Mediastinal contour also unchanged with calcification of the aortic knob. LUNGS: Radiographically clear. PLEURA: No pleural effusion or pneumothorax seen. OSSEOUS STRUCTURES: Unremarkable. RAD/Chest PA and Lateral IMPRESSION: No acute cardiopulmonary process identified. Electronically Signed: Lindsay Guaman MD at 9:15 EST ,
[2024-10-07 10:13] LABS: Absolute Neutrophil Count 3.2 X10^3/uL (2.0-7.7); Basophil# 0.04 X10^3/uL; Basophil% 0.9 % (0-1); Lymphocyte % 19.8 % (19-41); Mean Corpuscular Volume 91.3 fL (80-94); Mean Platelet Vol. 9.3 fl (6.2-12.0); Monocyte# 0.34 X10^3/uL; Monocyte% 7.5 % (0-10); NRBC Flagged by Analyzer 0 % (0-5); Neutrophil # 3.24 X10^3/uL (2.7-7.7); Neutrophil % 71.4 % (47-70); Platelet Count 109 K/mm3 (150-450); RBC Distribution Width CV 13.2 % (11.6-14.6); RBC Distribution Width SD 43.7 fl (35.1-43.9); Red Blood Count 4.38 M/mm3 (4.6-6.2); White Blood Count 4.5 K/mm3 (4.4-11.0)
[2024-10-07 10:21] LABS: International Normalized Ratio 1.1; Prothrombin Time (Protime)PT. 14.3 SECONDS (11.7-14.9)
[2024-10-07 10:22] LABS: Partial Thromboplast Time 30.3 Seconds (24.1-36.2)
[2024-10-07 10:46] LABS: Anion Gap 3 (5-15); BUN 22 mg/dL (7-18); BUN/Creat Ratio 14.4 RATIO (10-20); Calcium,Total 10.4 mg/dL (8.5-10.1); Chloride 107 mmol/L (98-107); Creatinine, Serum 1.53 mg/dL (0.70-1.30); EST Glomerular Filtration Rate 47 mL/min (>60); Est Glom Filt Rate - Afr Amer 56 mL/min (>60); Glucose 160 mg/dL (74-106); Potassium 4.3 mmol/L (3.5-5.1); Sodium Level 139 mmol/L (136-145)
== END | disposition home or self-care (01) ==
PROVIDERS: PCP Internal Medicine; Referring Provider Physician Assistant Medical; Visit Provider Physician Assistant Medical
DX: I47.29 Other ventricular tachycardia (principal); Z79.01 Long term (current) use of anticoagulants
CPT/HCPCS: 36415; 71046; 80048; 85025; 85610; 85730

== ENCOUNTER 2024-10-13 08:19 | Day surgery (SDC) | payer MEDICARE, OTHER, SELFPAY ==
[2024-10-10 09:57] VITALS: BMI 31.5
--- NOTE | 2024-10-10 14:41 | PCM.HP.BLA ---
History and Physical Date of Admission: 10/13/24 This is an 84-year-old gentleman who presents here today for a diagnostic heart cath for NSVT that was noted on an event monitor. He was not symptomatic with this. He was admitted to [facility] on 07/28/2021 for new onset atrial fibrillation. He was initially started on IV Cardizem and switched over to oral Cardizem. Echocardiogram demonstrated a normal ejection fraction of 50 to 55%. He did have moderate MR on her echocardiogram. He was also noted to be hypothyroid. He was cardioverted in 08/2021. He also has a history of hypertension, chronic kidney disease, and BPH. He has had only occasional episodes of atrial fibrillation He denies chest, arm, jaw, or neck discomfort. He denies palpitations. He denies bilateral lower extremity edema. He denies claudication. He states shortness of breath with activity such as walking from room to room that he attributes to metoprolol. He denies shortness of breath at rest, orthopnea, or PND. He denies chronic cough. He denies significant, sudden weight gain. He states lightheadedness for two weeks with metoprolol. He denies dizziness, near-syncope, or syncope. He denies blood in urine, blood in stool, or epistaxis. He denies fever with chills. He denies myalgia. He states fatigue. His exercise level has remained stable. He states his blood pressure is better controlled at home at 130s/70s. [facility] Medical History Paroxysmal atrial fibrillation Essential hypertension Stage 3b chronic kidney disease Blood glucose elevated Bilateral leg edema Right knee pain Left knee DJD Right knee DJD Seasonal allergies BEP (benign enlargement of prostate) Arthritis Carpal tunnel syndrome Cataracts, bilateral Hypothyroidism Pancreatitis Surgical History History of cardioversion (07/26/23) Hx of cholecystectomy Hx of shoulder surgery Hx of foot surgery Family History Sister Colon cancer Father Diabetes Heart disease Mother Hyperlipemia Social History Smoking Status: Former smoker quit date: 10/29/1968 second hand exposure: No alcohol intake: current alcohol intake frequency: holidays/special occasions only substance use type: does not use caffeine: Yes what type of physical activity do you participate in: walking frequency: daily ROS Const Const: Negative for fatigue, weakness, headache(s), daytime sleepiness or difficulty sleeping ENT ENT: Negative for headache(s), dizziness or Nosebleed/epistaxis Cardio Chest Pain: No Palpitations: Yes (at times but returns quickly to normal) Edema: None Resp Respiratory: Positive for SOB with activity; Negative for SOB at rest, SOB orthopnea\SOB lying down or Cough GI GI: Negative nausea, vomiting or heartburn Neuro Neuro: Negative for dizziness, lightheadedness, near syncope, headache(s) or weakness Endo Endo: Negative for fatigue Cardiology Exam Const Appearance: cooperative, healthy appearing, no acute distress, well developed and well groomed Nutritional Appearance: average body habitus and well nourished Orientation: alert, awake and oriented x3 Head Head: normal to inspection, normocephalic and atraumatic Ears: hearing grossly normal bilaterally and external ears normal Nose: external nose normal, nares normal, nasal mucous membranes and turbinates normal, septum normal and no nasal discharge Face and Sinus: face symmetric Mouth: oral mucosae normal, tongue normal, oropharynx normal and moist mucous membranes Teeth and gingiva: dentition normal Throat: posterior oropharynx normal, tonsils normal and uvula midline Eyes General: appearance normal, both eyes and all related structures Eyelids: eyelids normal Conjunctivae: conjunctivae normal Pupils: PERRL, normal by confrontation and accommodation normal EOM: EOM intact bilaterally Neck Neck: normal visual inspection, trachea midline and no JVD JVD: +5 Carotids: normal carotid upstroke and bounding pulses Chest Chest inspection: normal inspection of the chest, symmetric chest movement and normal respiratory effort Auscultation: Bilateral: Clear to Auscultation Cardio Palpation: normal PMI Rate: regular rate Rhythm: regular rhythm Heart sounds: S1 normal, S2 normal and normal, physiologic split S2; Negative rub, gallop or murmur GI GI: normal to inspection, soft, no hepatosplenomegaly and bowel sounds present Neuro General: patient alert, patient awake, patient oriented x3, gait normal, moves all extremities and no focal sensory deficit Skin Skin: no rashes or lesions noted Extremities Pulses: Normal: Right Femoral Pulse, Left Femoral Pulse, Right Dorsalis Pedis Pulse, Left Dorsalis Pedis Pulse, Right Posterior Tibial Pulse, Left Posterior Tibial Pulse, Right Radial Pulse and Left Radial Pulse Lower Extremity Edema: None: Bilateral Musculoskel Musculoskeletal: No joint tenderness Psych Psychological: normal affect Assessment & Plan Assessment/Plan (1) NSVT (nonsustained ventricular tachycardia): (2) Paroxysmal atrial fibrillation: (3) Essential hypertension: PLAN: Plan NSVT was noted on an event monitor. Pt was not symptomatic. Will proceed with Diagnostic heart cath to further evaluate. Based on finding will decide next plan of care.
--- NOTE | 2024-10-13 10:28 | CL.D_ITS ---
Patient Name: FARZAD LUAREN Study Date: 10/13/2024 Performing: Danilo Cheng MD Ht: 70 inches 177.8 cm : 1940 Wt: 220 lbs 99.79 kg Age: 84 Gender: male BSA: 2.17 PROCEDURE(S) PERFORMED [id number])[facility] CLINICAL PROFILE AND INDICATIONS Indications: Cardiac Arrythmia Heart Failure: None Stress/Imaging Stress/Image Study Performed: No CAD Presentations: No Sxs, no angina. CONCLUSIONS Non obstructive coronary arteries RECOMMENDATIONS Medical therapy DESCRIPTION OF PROCEDURE The patient arrived to the procedure lab. The risks and benefits of the procedure as well as a full description of our services here and current unavailability of surgical backup were fully explained to the patient and/or their significant other prior to the catheterization. The Timeout was completed, verifying the correct patient and procedure. The patient's procedural site was prepped and draped in the usual fashion. Local anesthetic was given subcutaneously to right radial region with Lidocaine 2%. Using a modified Seldinger technique, arterial access was obtained via the right radial artery, a 6Fr sheath was inserted. Left Coronary Artery selective angiography was performed in multiple views using a 5 Fr. 4.0 Hixton catheter. Right Coronary Artery selective angiography was then performed in multiple views using a 5 Fr. 4.0 Hixton catheter.The arterial sheath was pulled and a TR Band was applied for hemostasis CORONARY ANGIOGRAPHY DOMINANCE: Right Dominant LEFT HEART ASSESSMENT Left Ventricular Ejection Fraction: by Echo 55 % Normal LV wall motion Normal Left Ventricular systolic function LEFT MAIN: Angiographically normal LEFT ANTERIOR DESCENDING ARTERY: Mild luminal irregularities less than 30% CIRCUMFLEX ARTERY: Mild luminal irregularities less than 30% RIGHT CORONARY ARTERY: Mild luminal irregularities COMPLICATIONS No Complications PROCEDURE MEDICATIONS Fentanyl 50 mcg IV Versed 1 mg IV Oxygen: 2 L/min via nasal cannula SUMMARY OF HEMODYNAMIC DATA Time AIR REST ECG 08:39:08 ECG 10:02:30 AO 132/67 (93) SA 10:18:47 Signed By Daniol Cheng MD On 10/13/2024 10:27:46 Danilo Cheng MD
== END 2024-10-13 12:10 | disposition home or self-care (01) ==
PROVIDERS: PCP Internal Medicine; Referring Provider Internal Medicine Cardiovascular Disease; Visit Provider Internal Medicine Cardiovascular Disease
DX: I47.20 Ventricular tachycardia, unspecified (principal); I48.0 Paroxysmal atrial fibrillation; N18.32 Chronic kidney disease, stage 3b; I12.9 Hypertensive chronic kidney disease with stage 1 through stage 4 chronic kidney disease, or unspecified chronic kidney disease; R07.89 Other chest pain; Z87.891 Personal history of nicotine dependence; Z79.01 Long term (current) use of anticoagulants; Z79.899 Other long term (current) drug therapy
CPT/HCPCS: 93454; 99152; 99153; Q9967; C1769; C1894

== ENCOUNTER → 2024-11-10 | Outpatient (CLI) | payer MEDICARE, OTHER, SELFPAY ==
[2024-11-10 10:29] LABS: Anion Gap 3 (5-15); BUN 22 mg/dL (7-18); BUN/Creat Ratio 13.4 RATIO (10-20); Calcium,Total 9.6 mg/dL (8.5-10.1); Chloride 104 mmol/L (98-107); Creatinine, Serum 1.64 mg/dL (0.70-1.30); EST Glomerular Filtration Rate 43 mL/min (>60); Est Glom Filt Rate - Afr Amer 52 mL/min (>60); Glucose 168 mg/dL (74-106); Potassium 4.1 mmol/L (3.5-5.1); Sodium Level 137 mmol/L (136-145)
== END | disposition home or self-care (01) ==
LOC: LAB 09:30
PROVIDERS: PCP Internal Medicine; Referring Provider Physician Assistant Medical; Visit Provider Physician Assistant Medical
DX: E83.52 Hypercalcemia (principal)
CPT/HCPCS: 36415; 80048

== ENCOUNTER → 2025-03-06 | Outpatient (CLI) | payer MEDICARE, OTHER, SELFPAY ==
[2025-03-06 13:47] LABS: Absolute Lymphocyte Count 0.89 X10^3/uL (0.83-4.51); Absolute Neutrophil Count 2.6 X10^3/uL (2.0-7.7); Basophil# 0.05 X10^3/uL; Basophil% 1.2 % (0-1); Hematocrit 41.9 % (40-54); Hemoglobin 14.4 g/dL (13.0-16.5); Lymphocyte # 0.89 X10^3/ul (0.83-4.51); Lymphocyte % 22.1 % (19-41); Mean Corp Hgb Conc 34.4 g/dL (32-36); Mean Corpuscular Volume 93.1 fL (80-94); Mean Platelet Vol. 9.9 fl (6.2-12.0); Monocyte# 0.46 X10^3/uL; Monocyte% 11.4 % (0-10); NRBC Flagged by Analyzer 0 % (0-5); Neutrophil % 64.8 % (47-70); Platelet Count 103 K/mm3 (150-450); RBC Distribution Width CV 13.7 % (11.6-14.6); RBC Distribution Width SD 46.7 fl (35.1-43.9)
[2025-03-06 15:12] LABS: ALB/GLOB Ratio 1.4 RATIO (0.9-2.4); AST(SGOT) 37 U/L (<=37); Alanine Aminotransfer ALT/SGPT 43 U/L (<=46); Albumin, Serum 3.9 g/dL (3.4-4.8); Alkaline Phosphatase 68 U/L (40-129); Anion Gap 11 (5-15); BUN 17 mg/dL (4-19); Calcium,Total 9.6 mg/dL (7.6-11.0); Carbon Dioxide 25.1 mmol/L (21.0-32.0); Chloride 100 mmol/L (98-108); Cholesterol 188 mg/dL (<=200); Creatinine, Serum 1.58 mg/dL (0.70-1.20); EST Glomerular Filtration Rate 43 (>60); Free T3 2.5 pg/mL (2.18-3.98); Globulin 2.8 g/dL (2.2-4.2); Glucose 177 mg/dL (70-99); High Density Lipoprotein 38 mg/dL; Low Density Lipoprotein Calc. 123 mg/dL; Magnesium 2.1 mg/dL (1.5-2.2); PSA,Total - Annual Screen 2.87 ng/mL (0.02-4.00); Potassium 4.7 mmol/L (3.3-5.1); Protein, Total 6.8 g/dL (5.9-8.4); Sodium Level 137 mmol/L (133-145); Total Bilirubin 1.52 mg/dL (0.00-1.30); Triglycerides 131 mg/dL; Very Low Density Lipoprotein 26 mg/dL (5-40); Vitamin D,25 Hydroxy 84.5 ng/mL (30-100)
[2025-03-09 08:28] LABS: Hemoglobin A1c 6.5 % (<=5.6)
== END | disposition home or self-care (01) ==
LOC: BIMLAB 08:00
PROVIDERS: PCP Internal Medicine; Referring Provider Internal Medicine; Visit Provider Internal Medicine
DX: E03.9 Hypothyroidism, unspecified (principal); I48.0 Paroxysmal atrial fibrillation; N18.32 Chronic kidney disease, stage 3b; E88.819 Insulin resistance, unspecified; I12.9 Hypertensive chronic kidney disease with stage 1 through stage 4 chronic kidney disease, or unspecified chronic kidney disease; E55.9 Vitamin D deficiency, unspecified; H91.91 Unspecified hearing loss, right ear; R73.9 Hyperglycemia, unspecified; Z79.01 Long term (current) use of anticoagulants; Z12.5 Encounter for screening for malignant neoplasm of prostate
CPT/HCPCS: 36415; 80053; 80061; 82306; 83036; 83735; 84153; 84439; 84443; 84481; 85025; G0103

== ENCOUNTER → 2025-07-03 | Outpatient (CLI) | payer MEDICARE, OTHER, SELFPAY ==
[2025-07-03 14:05] LABS: Free T3 2.9 pg/mL (2.18-3.98)
== END | disposition home or self-care (01) ==
LOC: BIMLAB 09:03
PROVIDERS: PCP Internal Medicine; Referring Provider Internal Medicine; Visit Provider Internal Medicine
DX: E03.9 Hypothyroidism, unspecified (principal)
CPT/HCPCS: 36415; 84439; 84443; 84481